=== PATIENT | male | born 2000 | race Two or more races ===

== ENCOUNTER 2020-06-04 10:47 | Inpatient (IN) | payer OTHER ==
[~2020-06-04] VITALS: Ht 165.1 cm; Wt 78.0 kg
--- NOTE | 2020-06-04 10:58 | NUR ---
FEVER FOR THE LAST WEEK, FRIDAY FEVER BEING 102,COUGH X1 WEEK, XR AT [facility]OWS LARGE LT PLEURAL EFFUSION. FATHER AT BEDSIDE. DR. LEYVA AT BEDSIDE. HAD COVID VACCINE 2 WEEKS AGO, PT STATES HE HAS SORE THROAT, AND PRESSURE IN CHEST, SHARP PAIN IN CHEST WITH COUGHING. PT ATTACHED TO MONITORS, VSS, NADN. WILL CONTINUE TO MONITOR.
[2020-06-04 11:28] LABS: BASOPHILS % (AUTO) 1 % (0-1); EOSINOPHILS % (AUTO) 2 % (1-7); LYMPHOCYTES % (AUTO) 13 % (22-44); MEAN CORPUSCULAR HGB CONC 35.1 g/dL (33.2-36.2); MEAN PLATELET VOLUME 6.6 fL (7.4-10.4); MONOCYTES % (AUTO) 11 % (2-9); NEUTROPHILS % (AUTO) 74 % (42-75); PLATELET COUNT 500 x10^3/uL (130-400); RED BLOOD COUNT 4.45 x10^6/uL (4.38-5.82); RED CELL DISTRIBUTION WIDTH 12.4 % (9.4-14.8)
[2020-06-04 11:29] LABS: MD NO
[2020-06-04 11:39] LABS: ALANINE AMINOTRANSFERASE 16 U/L (12-78); ALBUMIN 3.5 g/dL (3.4-5.0); ANION GAP 4 mmol/L (5-15); CALCIUM 9.6 mg/dL (8.5-10.1); CHLORIDE 103 mmol/L (98-107); CREATININE 0.95 mg/dL (0.7-1.3)
[2020-06-04 11:41] LABS: ALKALINE PHOSPHATASE 121 U/L (45-117); BILIRUBIN,TOTAL 0.3 mg/dL (0.2-1.0); TOTAL PROTEIN 8.8 g/dL (6.4-8.2)
--- NOTE | 2020-06-04 11:45 | NUR ---
PT TO CT
[2020-06-04] MEDS ORDERED: OMNIPAQUE 350 MG/ML, 75ML BOTTLE ONE (11:55)
--- NOTE | 2020-06-04 12:32 | NUR ---
pt up to bathroom with steady gait, vss, nadn
--- NOTE | 2020-06-04 12:55 | NUR ---
pt resting in bed with father at bedside, awaiting ct results, vss, nadn.
--- NOTE | 2020-06-04 13:04 | NUR ---
Break RN: Called CT to inquire about read of CT imaging, no answer. Message left.
--- NOTE | 2020-06-04 13:12 | NUR ---
Break RN: CT stated "Okay I'll take a look at it and get it pushed through."
--- NOTE | 2020-06-04 13:33 | NUR ---
AT BEDSIDE FOR EVALUATION
[2020-06-04] MEDS ORDERED: SODIUM CHLORIDE 0.9% 1,000ML IVBOLUS ONE (14:30)
[2020-06-04] MEDS ORDERED: ONDANSETRON ODT 4 MG PO PRN (15:00)
[2020-06-04] MEDS ORDERED: hydrALAzine 20 MG/ML, 1ML IVPush PRN (15:00)
--- NOTE | 2020-06-04 15:23 | NUR ---
X2 ATTEMPT AT REPORT
--- NOTE | 2020-06-04 15:34 | NUR ---
report called to kay
[2020-06-04 16:07] VITALS: BP 114/66
[2020-06-04] MEDS: ACETAMINOPHEN 325 MG TABLET PO PRN (16:12)
[2020-06-04] MEDS: BENZONATATE 100 MG CAPSULE PO PRN (16:12)
[2020-06-04] MEDS ORDERED: OMNIPAQUE 350 MG/ML, 100ML BOTTLE ONE (17:27)
[2020-06-04 18:39] VITALS: BP 114/68
[2020-06-04] MEDS: OXYcodone/APAP 5/325MG TABLET PO PRN (19:49)
[2020-06-04] MEDS: MELATONIN 5 MG TABLET PO PRN (19:49)
[2020-06-05 00:25] VITALS: BP 102/69
[2020-06-05] MEDS: OXYcodone/APAP 5/325MG TABLET PO PRN ×2 (01:59→08:01)
[2020-06-05] MEDS: BENZONATATE 100 MG CAPSULE PO PRN (02:05)
[2020-06-05] MEDS: GUAIFENESIN/DM 100-10MG, 5ML UDC PO PRN ×2 (02:05→19:52)
[2020-06-05] MEDS: ACETAMINOPHEN 325 MG TABLET PO PRN ×2 (02:05→19:52)
[2020-06-05 05:37] LABS: BASOPHILS % (AUTO) 1 % (0-1); EOSINOPHILS % (AUTO) 1 % (1-7); LYMPHOCYTES % (AUTO) 12 % (22-44); MEAN CORPUSCULAR HEMOGLOBIN 31.8 pg (27.5-34.5); MEAN CORPUSCULAR HGB CONC 35.2 g/dL (33.2-36.2); MEAN PLATELET VOLUME 6.6 fL (7.4-10.4); MONOCYTES % (AUTO) 11 % (2-9); NEUTROPHILS % (AUTO) 75 % (42-75); PLATELET COUNT 475 x10^3/uL (130-400); RED BLOOD COUNT 4.14 x10^6/uL (4.38-5.82); RED CELL DISTRIBUTION WIDTH 12.3 % (9.4-14.8)
[2020-06-05 05:38] LABS: MD NO
[2020-06-05 05:47] LABS: ANION GAP 3 mmol/L (5-15); CALCIUM 9.4 mg/dL (8.5-10.1); CHLORIDE 102 mmol/L (98-107); CREATININE 1.02 mg/dL (0.7-1.3)
[2020-06-05 06:50] VITALS: BP 118/80
[2020-06-05 13:05] VITALS: BP 125/78
[2020-06-05] MEDS ORDERED: IBUPROFEN 800 MG TABLET PO PRN (13:30)
[2020-06-05 19:04] VITALS: BP 145/73
[2020-06-05] MEDS: MELATONIN 5 MG TABLET PO PRN (21:44)
[2020-06-06 02:37] VITALS: BP 110/58
[2020-06-06] MEDS: GUAIFENESIN/DM 100-10MG, 5ML UDC PO PRN ×2 (03:24→20:13)
[2020-06-06 06:55] VITALS: BP 121/76
[2020-06-06] MEDS: OXYcodone/APAP 5/325MG TABLET PO PRN ×2 (08:57→20:04)
[2020-06-06] MEDS ORDERED: MIDAZOLAM 1 MG/ML, 5ML ONE (11:00)
[2020-06-06] MEDS ORDERED: FLUMAZENIL 0.1 MG/1 ML, 5ML ONE (11:00)
[2020-06-06] MEDS ORDERED: NALOXONE 1 MG/ML, 2ML ONE (11:00)
[2020-06-06] MEDS ORDERED: FENTANYL PF 100 MCG/2ML ONE (11:00)
[2020-06-06 12:29] VITALS: BP 99/65
[2020-06-06 19:19] VITALS: BP 105/53
[2020-06-06] MEDS: ACETAMINOPHEN 325 MG TABLET PO PRN (20:03)
[2020-06-06] MEDS: KETOROLAC 30 MG/1 ML IVPush PRN (21:30)
[2020-06-06 22:49] VITALS: BP 97/59
[2020-06-07 01:50] VITALS: BP 111/73
[2020-06-07] MEDS: OXYcodone/APAP 5/325MG TABLET PO PRN ×4 (05:07→23:31)
[2020-06-07] MEDS: GUAIFENESIN/DM 100-10MG, 5ML UDC PO PRN ×4 (06:00→21:19)
[2020-06-07 07:27] VITALS: BP 112/71
[2020-06-07 12:34] VITALS: BP 106/60
[2020-06-07 12:49] LABS: MICROSCOPIC NOT IND
[2020-06-07] MEDS: BENZONATATE 100 MG CAPSULE PO PRN (14:50)
[2020-06-07] MEDS: ACETAMINOPHEN 325 MG TABLET PO PRN (15:18)
[2020-06-07 19:26] VITALS: BP 117/65
[2020-06-07] MEDS: CALCIUM CARBONATE 500 MG TAB.CHEW PO PRN (23:24)
[2020-06-08 04:00] VITALS: BP 106/56
[2020-06-08] MEDS: ACETAMINOPHEN 325 MG TABLET PO PRN (04:35)
[2020-06-08] MEDS: OXYcodone/APAP 5/325MG TABLET PO PRN ×2 (06:21→18:18)
[2020-06-08 07:15] VITALS: BP 109/66
[2020-06-08] MEDS: GUAIFENESIN/DM 100-10MG, 5ML UDC PO PRN ×2 (09:01→18:17)
[2020-06-08] MEDS: BENZONATATE 100 MG CAPSULE PO PRN ×2 (09:01→18:18)
[2020-06-08] MEDS: KETOROLAC 30 MG/1 ML IVPush PRN ×2 (13:11→21:57)
[2020-06-08 13:27] VITALS: BP 119/63
[2020-06-08 17:15] VITALS: BP 118/65
[2020-06-08 18:21] VITALS: BP 125/79
[2020-06-08] MEDS: CALCIUM CARBONATE 500 MG TAB.CHEW PO PRN (18:27)
[2020-06-08] MEDS: ALUMINUM/MAG/SIMETHICONE 30 ML UDC PO PRN (19:20)
[2020-06-09] MEDS: GUAIFENESIN/DM 100-10MG, 5ML UDC PO PRN ×3 (00:12→21:26)
[2020-06-09 03:05] VITALS: BP 118/72
[2020-06-09] MEDS: CALCIUM CARBONATE 500 MG TAB.CHEW PO PRN (03:23)
[2020-06-09 07:18] VITALS: BP 106/67
[2020-06-09] MEDS: OMEPRAZOLE 20 MG CAPSULE.DR PO SCH (08:10)
[2020-06-09] MEDS: KETOROLAC 30 MG/1 ML IVPush PRN ×2 (08:13→16:49)
[2020-06-09] MEDS: OXYcodone/APAP 5/325MG TABLET PO PRN ×3 (08:14→20:05)
[2020-06-09] MEDS: BENZONATATE 100 MG CAPSULE PO PRN ×2 (11:06→16:49)
[2020-06-09] MEDS ORDERED: LIDOCAINE 1%, 10ML ONE (11:19)
[2020-06-09 12:35] VITALS: BP 118/73
[2020-06-09 19:25] VITALS: BP 108/71
[2020-06-10 03:45] VITALS: BP 111/53
[2020-06-10] MEDS: ACETAMINOPHEN 325 MG TABLET PO PRN ×2 (03:52→15:30)
[2020-06-10] MEDS: KETOROLAC 30 MG/1 ML IVPush PRN (05:55)
[2020-06-10] MEDS: OMEPRAZOLE 20 MG CAPSULE.DR PO SCH (05:59)
[2020-06-10 06:58] VITALS: BP 103/63
[2020-06-10] MEDS: OXYcodone/APAP 5/325MG TABLET PO PRN (08:04)
[2020-06-10] MEDS: BENZONATATE 100 MG CAPSULE PO PRN (08:04)
[2020-06-10] MEDS: GUAIFENESIN/DM 100-10MG, 5ML UDC PO PRN (10:04)
[2020-06-10 12:27] VITALS: BP 124/78
[2020-06-10] MEDS ORDERED: GUAIFENESIN 100 MG/5 ML, 10ML UDC PO PRN (15:08)
[2020-06-10] MEDS: GUAIFENESIN/DM 200-20MG, 10ML UDC PO PRN ×2 (17:24→21:47)
[2020-06-10 19:45] VITALS: BP 113/65
[2020-06-11 01:55] VITALS: BP 123/77
[2020-06-11] MEDS: OMEPRAZOLE 20 MG CAPSULE.DR PO SCH (05:36)
[2020-06-11] MEDS: OXYcodone/APAP 5/325MG TABLET PO PRN ×2 (07:51→13:59)
[2020-06-11] MEDS: GUAIFENESIN/DM 200-20MG, 10ML UDC PO PRN ×3 (07:55→20:37)
[2020-06-11 09:13] VITALS: BP 113/74
[2020-06-11 10:33] LABS: MICROSCOPIC NOT IND
[2020-06-11] MEDS: ACETAMINOPHEN 325 MG TABLET PO PRN ×2 (15:11→22:25)
[2020-06-11 15:12] VITALS: BP 102/68
[2020-06-11] MEDS: KETOROLAC 30 MG/1 ML IVPush PRN (15:41)
[2020-06-11 18:56] VITALS: BP 110/70
[2020-06-11] MEDS: MELATONIN 5 MG TABLET PO PRN (22:14)
[2020-06-12 00:56] VITALS: BP 104/67
[2020-06-12 05:41] LABS: BASOPHILS % (AUTO) 1 % (0-1); EOSINOPHILS % (AUTO) 3 % (1-7); LYMPHOCYTES % (AUTO) 12 % (22-44); MEAN CORPUSCULAR HEMOGLOBIN 31.1 pg (27.5-34.5); MEAN CORPUSCULAR HGB CONC 33.7 g/dL (33.2-36.2); MEAN PLATELET VOLUME 6.7 fL (7.4-10.4); MONOCYTES % (AUTO) 12 % (2-9); NEUTROPHILS % (AUTO) 73 % (42-75); PLATELET COUNT 510 x10^3/uL (130-400); RED BLOOD COUNT 3.22 x10^6/uL (4.38-5.82); RED CELL DISTRIBUTION WIDTH 12.8 % (9.4-14.8)
[2020-06-12 05:43] LABS: MD NO
[2020-06-12 05:49] LABS: ALBUMIN 2.2 g/dL (3.4-5.0); ANION GAP 5 mmol/L (5-15); CALCIUM 8.6 mg/dL (8.5-10.1); CHLORIDE 102 mmol/L (98-107)
[2020-06-12 05:53] LABS: ALANINE AMINOTRANSFERASE 38 U/L (12-78); ALKALINE PHOSPHATASE 124 U/L (45-117); BILIRUBIN,TOTAL 0.5 mg/dL (0.2-1.0); CREATININE 0.73 mg/dL (0.7-1.3); TOTAL PROTEIN 6.9 g/dL (6.4-8.2)
[2020-06-12] MEDS: OMEPRAZOLE 20 MG CAPSULE.DR PO SCH (05:53)
[2020-06-12] MEDS: GUAIFENESIN/DM 200-20MG, 10ML UDC PO PRN ×3 (05:55→14:22)
[2020-06-12] MEDS ORDERED: POLYETHYLENE GLYCOL 17 GM PACKET PO PRN (07:30)
[2020-06-12] MEDS ORDERED: LORazepam 2 MG/ML, 1ML IV PRN (08:30)
[2020-06-12 08:46] VITALS: BP 125/57
[2020-06-12] MEDS: SODIUM CHLORIDE 0.9% 1,000 ML IV SCH ×2 (08:53→19:49)
[2020-06-12 08:59] LABS: MICROSCOPIC NOT IND
[2020-06-12] MEDS: OLANZAPINE 5 MG TABLET PO SCH (10:16)
[2020-06-12] MEDS: ONDANSETRON 16 MG, DEXAMETHASONE 20 MG in SODIUM CHLORIDE 0.9% 50 ML IVPB SCH (12:55)
[2020-06-12] MEDS ORDERED: SODIUM CHLORIDE 0.9% IV ONE (13:30)
[2020-06-12] MEDS ORDERED: MESNA IV ONE (13:30)
[2020-06-12] MEDS: CISPLATIN 39 MG in SODIUM CHLORIDE 0.9% 250 ML IV SCH (13:49)
[2020-06-12 14:24] VITALS: BP 104/65
[2020-06-12] MEDS: OXYcodone/APAP 5/325MG TABLET PO PRN (16:13)
[2020-06-12] MEDS: ETOPOSIDE IV SCH (17:43)
[2020-06-12] MEDS: SODIUM CHLORIDE 0.9% IV SCH ×3 (17:43→18:30)
[2020-06-12] MEDS: IFOSFAMIDE IV SCH (17:45)
[2020-06-12] MEDS: MESNA IV SCH (18:30)
[2020-06-12 18:48] VITALS: BP 115/71
[2020-06-13 02:45] VITALS: BP 101/65
[2020-06-13] MEDS: GUAIFENESIN/DM 200-20MG, 10ML UDC PO PRN ×4 (03:49→20:30)
[2020-06-13] MEDS: SODIUM CHLORIDE 0.9% 1,000 ML IV SCH ×3 (03:49→19:21)
[2020-06-13 04:35] LABS: BASOPHILS % (AUTO) 0 % (0-1); EOSINOPHILS % (AUTO) 0 % (1-7); LYMPHOCYTES % (AUTO) 4 % (22-44); MEAN CORPUSCULAR HEMOGLOBIN 31.1 pg (27.5-34.5); MEAN CORPUSCULAR HGB CONC 33.3 g/dL (33.2-36.2); MEAN PLATELET VOLUME 6.9 fL (7.4-10.4); MONOCYTES % (AUTO) 5 % (2-9); NEUTROPHILS % (AUTO) 91 % (42-75); PLATELET COUNT 520 x10^3/uL (130-400); RED BLOOD COUNT 3.06 x10^6/uL (4.38-5.82); RED CELL DISTRIBUTION WIDTH 13.4 % (9.4-14.8)
[2020-06-13 04:43] LABS: MD NO
[2020-06-13 04:47] LABS: ALBUMIN 1.9 g/dL (3.4-5.0); ANION GAP 7 mmol/L (5-15); CALCIUM 8.3 mg/dL (8.5-10.1); CHLORIDE 111 mmol/L (98-107)
[2020-06-13 04:51] LABS: ALANINE AMINOTRANSFERASE 34 U/L (12-78); ALKALINE PHOSPHATASE 121 U/L (45-117); BILIRUBIN,TOTAL 0.3 mg/dL (0.2-1.0); CREATININE 0.73 mg/dL (0.7-1.3); TOTAL PROTEIN 6.5 g/dL (6.4-8.2)
[2020-06-13] MEDS: OMEPRAZOLE 20 MG CAPSULE.DR PO SCH (06:37)
[2020-06-13 07:10] VITALS: BP 132/76
[2020-06-13 07:45] LABS: MICROSCOPIC NOT IND
[2020-06-13] MEDS: OLANZAPINE 5 MG TABLET PO SCH (07:47)
[2020-06-13] MEDS: ONDANSETRON 16 MG, DEXAMETHASONE 20 MG in SODIUM CHLORIDE 0.9% 50 ML IVPB SCH (10:09)
[2020-06-13] MEDS: CISPLATIN 39 MG in SODIUM CHLORIDE 0.9% 250 ML IV SCH (11:06)
[2020-06-13] MEDS: SODIUM CHLORIDE 0.9% IV SCH ×3 (12:33→16:58)
[2020-06-13] MEDS: ETOPOSIDE IV SCH (12:33)
[2020-06-13 14:13] VITALS: BP 137/83
[2020-06-13] MEDS: IFOSFAMIDE IV SCH (15:12)
[2020-06-13] MEDS: MESNA IV SCH (16:58)
[2020-06-13 19:07] VITALS: BP 127/79
[2020-06-13] MEDS: BENZONATATE 100 MG CAPSULE PO PRN (21:28)
[2020-06-14] MEDS: SODIUM CHLORIDE 0.9% 1,000 ML IV SCH ×3 (03:29→19:44)
[2020-06-14] MEDS: GUAIFENESIN/DM 200-20MG, 10ML UDC PO PRN ×2 (05:12→19:44)
[2020-06-14] MEDS: OMEPRAZOLE 20 MG CAPSULE.DR PO SCH (05:24)
[2020-06-14 05:27] VITALS: BP 131/81
[2020-06-14 05:39] LABS: BASOPHILS % (AUTO) 1 % (0-1); EOSINOPHILS % (AUTO) 0 % (1-7); LYMPHOCYTES % (AUTO) 7 % (22-44); MEAN CORPUSCULAR HEMOGLOBIN 31.1 pg (27.5-34.5); MEAN CORPUSCULAR HGB CONC 33.5 g/dL (33.2-36.2); MEAN PLATELET VOLUME 6.7 fL (7.4-10.4); MONOCYTES % (AUTO) 4 % (2-9); NEUTROPHILS % (AUTO) 88 % (42-75); PLATELET COUNT 589 x10^3/uL (130-400); RED BLOOD COUNT 2.99 x10^6/uL (4.38-5.82); RED CELL DISTRIBUTION WIDTH 13.1 % (9.4-14.8)
[2020-06-14 05:40] LABS: MD NO
[2020-06-14 05:43] LABS: MICROSCOPIC NOT IND
[2020-06-14 05:50] LABS: ALANINE AMINOTRANSFERASE 40 U/L (12-78); ALBUMIN 1.9 g/dL (3.4-5.0); ANION GAP 5 mmol/L (5-15); CALCIUM 8.4 mg/dL (8.5-10.1); CHLORIDE 111 mmol/L (98-107)
[2020-06-14 05:52] LABS: ALKALINE PHOSPHATASE 110 U/L (45-117); BILIRUBIN,TOTAL 0.2 mg/dL (0.2-1.0); TOTAL PROTEIN 6.3 g/dL (6.4-8.2)
[2020-06-14 06:40] VITALS: BP 138/85
[2020-06-14] MEDS: OLANZAPINE 5 MG TABLET PO SCH (09:18)
[2020-06-14] MEDS: ONDANSETRON 16 MG, DEXAMETHASONE 20 MG in SODIUM CHLORIDE 0.9% 50 ML IVPB SCH (09:40)
[2020-06-14] MEDS ORDERED: FUROSEMIDE 20 MG/2 ML IV ONE (10:00)
[2020-06-14] MEDS: CISPLATIN 39 MG in SODIUM CHLORIDE 0.9% 250 ML IV SCH (10:46)
[2020-06-14] MEDS: ETOPOSIDE IV SCH (12:19)
[2020-06-14] MEDS: SODIUM CHLORIDE 0.9% IV SCH ×3 (12:19→15:33)
[2020-06-14] MEDS: OXYcodone/APAP 5/325MG TABLET PO PRN ×2 (12:22→19:55)
[2020-06-14] MEDS ORDERED: ALBUMIN HUMAN 25% 100 ML IV ONE (13:30)
[2020-06-14 14:00] VITALS: BP 128/82
[2020-06-14] MEDS: IFOSFAMIDE IV SCH (14:39)
[2020-06-14] MEDS: MESNA IV SCH (15:33)
[2020-06-14] MEDS: BENZONATATE 100 MG CAPSULE PO PRN (18:21)
[2020-06-14 19:52] VITALS: BP 124/79
[2020-06-15] MEDS: SODIUM CHLORIDE 0.9% 1,000 ML IV SCH ×3 (04:12→19:38)
[2020-06-15] MEDS: GUAIFENESIN/DM 200-20MG, 10ML UDC PO PRN (04:12)
[2020-06-15] MEDS: BENZONATATE 100 MG CAPSULE PO PRN ×2 (04:21→19:37)
[2020-06-15] MEDS: OXYcodone/APAP 5/325MG TABLET PO PRN ×2 (04:21→18:22)
[2020-06-15 04:24] VITALS: BP 144/86
[2020-06-15 05:05] LABS: MICROSCOPIC NOT IND
[2020-06-15 05:17] LABS: ANION GAP 5 mmol/L (5-15); CHLORIDE 106 mmol/L (98-107); CREATININE 0.75 mg/dL (0.7-1.3)
[2020-06-15 05:18] LABS: ALANINE AMINOTRANSFERASE 39 U/L (12-78); ALBUMIN 2.4 g/dL (3.4-5.0)
[2020-06-15 05:20] LABS: ALKALINE PHOSPHATASE 102 U/L (45-117); BASOPHILS % (AUTO) 1 % (0-1); BILIRUBIN,TOTAL 0.5 mg/dL (0.2-1.0); EOSINOPHILS % (AUTO) 0 % (1-7); LYMPHOCYTES % (AUTO) 10 % (22-44); MEAN CORPUSCULAR HEMOGLOBIN 31.7 pg (27.5-34.5); MEAN PLATELET VOLUME 7.1 fL (7.4-10.4); MONOCYTES % (AUTO) 2 % (2-9); NEUTROPHILS % (AUTO) 87 % (42-75); PLATELET COUNT 614 x10^3/uL (130-400); RED BLOOD COUNT 3.02 x10^6/uL (4.38-5.82); RED CELL DISTRIBUTION WIDTH 13.5 % (9.4-14.8); TOTAL PROTEIN 6.9 g/dL (6.4-8.2)
[2020-06-15 05:34] LABS: MD NO
[2020-06-15] MEDS: OMEPRAZOLE 20 MG CAPSULE.DR PO SCH (06:02)
[2020-06-15 07:39] VITALS: BP 137/77
[2020-06-15] MEDS ORDERED: METHOCARBAMOL 750 MG TABLET PO PRN (09:00)
[2020-06-15] MEDS: PROCHLORPERAZINE 5 MG/ML, 2ML IV PRN (09:20)
[2020-06-15] MEDS: OLANZAPINE 5 MG TABLET PO SCH (09:20)
[2020-06-15] MEDS: FAMOTIDINE 20 MG TABLET PO SCH ×2 (09:21→19:37)
[2020-06-15] MEDS: ONDANSETRON 16 MG, DEXAMETHASONE 20 MG in SODIUM CHLORIDE 0.9% 50 ML IVPB SCH (09:54)
[2020-06-15] MEDS: CISPLATIN 39 MG in SODIUM CHLORIDE 0.9% 250 ML IV SCH (12:16)
[2020-06-15] MEDS: SODIUM CHLORIDE 0.9% IV SCH ×3 (13:39→16:38)
[2020-06-15] MEDS: ETOPOSIDE IV SCH (13:39)
[2020-06-15 15:00] VITALS: BP 117/75
[2020-06-15] MEDS: IFOSFAMIDE IV SCH (15:59)
[2020-06-15] MEDS: MESNA IV SCH (16:38)
[2020-06-15 19:04] VITALS: BP 126/73
[2020-06-15] MEDS: CALCIUM CARBONATE 500 MG TAB.CHEW PO PRN (21:09)
[2020-06-15] MEDS: ALUMINUM/MAG/SIMETHICONE 30 ML UDC PO PRN (21:45)
[2020-06-16] MEDS: SODIUM CHLORIDE 0.9% 1,000 ML IV SCH (02:59)
[2020-06-16 03:01] VITALS: BP 124/72
[2020-06-16 04:38] LABS: MICROSCOPIC NOT IND
[2020-06-16] MEDS: OMEPRAZOLE 20 MG CAPSULE.DR PO SCH (05:00)
[2020-06-16] MEDS ORDERED: CATHFLO-ALTEPLASE 2 MG/2 ML CATHFLUSH STA (05:08)
[2020-06-16 05:22] LABS: BASOPHILS % (AUTO) 1 % (0-1); EOSINOPHILS % (AUTO) 1 % (1-7); LYMPHOCYTES % (AUTO) 13 % (22-44); MEAN CORPUSCULAR HEMOGLOBIN 31.4 pg (27.5-34.5); MEAN CORPUSCULAR HGB CONC 34.1 g/dL (33.2-36.2); MEAN PLATELET VOLUME 6.9 fL (7.4-10.4); MONOCYTES % (AUTO) 1 % (2-9); NEUTROPHILS % (AUTO) 85 % (42-75); PLATELET COUNT 602 x10^3/uL (130-400); RED BLOOD COUNT 3.13 x10^6/uL (4.38-5.82); RED CELL DISTRIBUTION WIDTH 13.4 % (9.4-14.8)
[2020-06-16 05:28] LABS: ANION GAP 4 mmol/L (5-15); CALCIUM 9.4 mg/dL (8.5-10.1); CHLORIDE 104 mmol/L (98-107)
[2020-06-16 05:31] LABS: CREATININE 0.86 mg/dL (0.7-1.3)
[2020-06-16 05:54] LABS: MD NO
[2020-06-16 07:05] VITALS: BP 114/72
[2020-06-16] MEDS: OLANZAPINE 5 MG TABLET PO SCH (07:27)
[2020-06-16] MEDS: OXYcodone/APAP 5/325MG TABLET PO PRN ×3 (07:28→21:31)
[2020-06-16] MEDS: GUAIFENESIN/DM 200-20MG, 10ML UDC PO PRN ×2 (07:28→20:53)
[2020-06-16] MEDS: FAMOTIDINE 20 MG TABLET PO SCH ×2 (07:28→21:30)
[2020-06-16] MEDS: ONDANSETRON 16 MG, DEXAMETHASONE 20 MG in SODIUM CHLORIDE 0.9% 50 ML IVPB SCH (10:30)
[2020-06-16] MEDS ORDERED: SODIUM CHLORIDE 0.9% 1,000 ML IV SCH (11:00)
[2020-06-16] MEDS: CISPLATIN 39 MG in SODIUM CHLORIDE 0.9% 250 ML IV SCH (12:21)
[2020-06-16] MEDS: SODIUM CHLORIDE 0.9% IV SCH ×3 (13:46→18:33)
[2020-06-16] MEDS: ETOPOSIDE IV SCH (13:46)
[2020-06-16 14:02] VITALS: BP 142/75
[2020-06-16] MEDS: IFOSFAMIDE IV SCH (16:00)
[2020-06-16] MEDS: MESNA IV SCH (18:33)
[2020-06-16 18:40] VITALS: BP 129/78
[2020-06-16] MEDS: CALCIUM CARBONATE 500 MG TAB.CHEW PO PRN (20:53)
[2020-06-16] MEDS: ALUMINUM/MAG/SIMETHICONE 30 ML UDC PO PRN (22:51)
[2020-06-17 00:55] VITALS: BP 109/62
[2020-06-17] MEDS: ONDANSETRON 2MG/ML, 2ML IVPush PRN ×2 (05:18→13:51)
[2020-06-17] MEDS: OXYcodone/APAP 5/325MG TABLET PO PRN (05:40)
[2020-06-17] MEDS: GUAIFENESIN/DM 200-20MG, 10ML UDC PO PRN ×2 (05:40→15:11)
[2020-06-17] MEDS: OMEPRAZOLE 20 MG CAPSULE.DR PO SCH (05:40)
[2020-06-17 05:56] LABS: BASOPHILS % (AUTO) 1 % (0-1); EOSINOPHILS % (AUTO) 1 % (1-7); LYMPHOCYTES % (AUTO) 13 % (22-44); MEAN CORPUSCULAR HGB CONC 33.5 g/dL (33.2-36.2); MEAN PLATELET VOLUME 6.7 fL (7.4-10.4); MONOCYTES % (AUTO) 1 % (2-9); NEUTROPHILS % (AUTO) 84 % (42-75); PLATELET COUNT 672 x10^3/uL (130-400); RED CELL DISTRIBUTION WIDTH 13.3 % (9.4-14.8)
[2020-06-17 06:02] LABS: ANION GAP 5 mmol/L (5-15); CALCIUM 10.5 mg/dL (8.5-10.1); CHLORIDE 98 mmol/L (98-107); CREATININE 0.93 mg/dL (0.7-1.3)
[2020-06-17 06:06] LABS: MD NO
[2020-06-17 07:45] VITALS: BP 119/71
[2020-06-17] MEDS: BENZONATATE 100 MG CAPSULE PO SCH ×3 (09:38→21:00)
[2020-06-17 12:51] VITALS: BP 112/64
[2020-06-17] MEDS: LORazepam 1MG TABLET PO PRN (15:11)
[2020-06-17] MEDS: CALCIUM CARBONATE 500 MG TAB.CHEW PO PRN (15:11)
[2020-06-17 18:10] VITALS: BP 106/68
[2020-06-17 19:12] VITALS: BP 106/75
[2020-06-17] MEDS: ALUMINUM/MAG/SIMETHICONE 30 ML UDC PO PRN (21:45)
[2020-06-18 00:06] VITALS: BP 106/65
[2020-06-18] MEDS: MELATONIN 5 MG TABLET PO PRN (01:53)
[2020-06-18] MEDS: LORazepam 1MG TABLET PO PRN ×2 (04:44→19:48)
[2020-06-18] MEDS: OMEPRAZOLE 20 MG CAPSULE.DR PO SCH ×2 (05:07→11:20)
[2020-06-18 05:26] LABS: BASOPHILS % (AUTO) 0 % (0-1); EOSINOPHILS % (AUTO) 2 % (1-7); LYMPHOCYTES % (AUTO) 13 % (22-44); MEAN CORPUSCULAR HEMOGLOBIN 31.1 pg (27.5-34.5); MEAN CORPUSCULAR HGB CONC 34.6 g/dL (33.2-36.2); MEAN PLATELET VOLUME 6.4 fL (7.4-10.4); MONOCYTES % (AUTO) 1 % (2-9); NEUTROPHILS % (AUTO) 83 % (42-75); PLATELET COUNT 589 x10^3/uL (130-400); RED BLOOD COUNT 3.83 x10^6/uL (4.38-5.82); RED CELL DISTRIBUTION WIDTH 13.4 % (9.4-14.8)
[2020-06-18 05:27] LABS: ANION GAP 9 mmol/L (5-15); CALCIUM 10.1 mg/dL (8.5-10.1); CHLORIDE 89 mmol/L (98-107); CREATININE 1.09 mg/dL (0.7-1.3)
[2020-06-18 05:30] LABS: MD NO
[2020-06-18] MEDS: SODIUM CHLORIDE 0.9% 1,000 ML IV SCH ×2 (06:38→17:35)
[2020-06-18] MEDS: BENZONATATE 100 MG CAPSULE PO SCH ×3 (07:57→20:58)
[2020-06-18] MEDS: FAMOTIDINE 20 MG/2 ML IVPush SCH ×2 (07:57→20:59)
[2020-06-18] MEDS: LACTOBACILLUS CHEW TABLET PO SCH ×3 (07:57→20:59)
[2020-06-18 08:01] VITALS: BP 115/76
[2020-06-18 08:14] VITALS: BP 101/70
[2020-06-18 08:15] VITALS: BP 95/60
[2020-06-18] MEDS ORDERED: SODIUM CHLORIDE 0.9%, 500ML IVBOLUS ONE (08:30)
[2020-06-18] MEDS ORDERED: SODIUM PHOSPHATE 20 MMOL in SODIUM CHLORIDE 0.9% 500 ML IV ONE (10:30)
[2020-06-18] MEDS: TBO-FILGRASTIM 480 MCG/0.8 ML SQ SCH (11:20)
[2020-06-18] MEDS: OLANZAPINE 2.5 MG TABLET PO SCH (11:20)
[2020-06-18 13:50] VITALS: BP 104/70
[2020-06-18 19:27] VITALS: BP 99/55
[2020-06-19 01:14] VITALS: BP 109/73
[2020-06-19] MEDS: ACETAMINOPHEN 325 MG TABLET PO PRN ×2 (01:30→19:37)
[2020-06-19] MEDS: SODIUM CHLORIDE 0.9% 1,000 ML IV SCH (03:42)
[2020-06-19 04:28] LABS: % IRON SATURATION 77 % (20-55); ANION GAP 5 mmol/L (5-15); CALCIUM 9.3 mg/dL (8.5-10.1); CHLORIDE 96 mmol/L (98-107); CREATININE 1.01 mg/dL (0.7-1.3); IRON LEVEL 154 mcg/dL (65-175); TOTAL IRON BINDING CAPACITY 201 mcg/dL (250-450)
[2020-06-19] MEDS: OMEPRAZOLE 20 MG CAPSULE.DR PO SCH (05:45)
[2020-06-19] MEDS ORDERED: GADOTERATE 7.5 MMOL/15ML SYR ONE (07:29)
[2020-06-19 07:49] VITALS: BP 112/75
[2020-06-19] MEDS ORDERED: POTASSIUM CHLORIDE 20 MEQ TAB.ER.PRT PO SCH (08:00)
[2020-06-19] MEDS ORDERED: POTASSIUM CHLORIDE 20 MEQ TAB.ER.PRT PO ONE (08:30)
[2020-06-19] MEDS: OLANZAPINE 2.5 MG TABLET PO SCH (09:18)
[2020-06-19] MEDS: BENZONATATE 100 MG CAPSULE PO SCH ×3 (09:18→20:25)
[2020-06-19] MEDS: FAMOTIDINE 20 MG/2 ML IVPush SCH ×2 (09:18→20:25)
[2020-06-19] MEDS: LACTOBACILLUS CHEW TABLET PO SCH ×3 (09:18→20:25)
[2020-06-19] MEDS: PROCHLORPERAZINE 5 MG/ML, 2ML IV PRN (09:22)
[2020-06-19 10:08] LABS: MEAN CORPUSCULAR HEMOGLOBIN 30.4 pg (27.5-34.5); MEAN CORPUSCULAR HGB CONC 34.1 g/dL (33.2-36.2); MEAN PLATELET VOLUME 6.5 fL (7.4-10.4); PLATELET COUNT 388 x10^3/uL (130-400); RED BLOOD COUNT 3.62 x10^6/uL (4.38-5.82); RED CELL DISTRIBUTION WIDTH 13.1 % (9.4-14.8)
[2020-06-19 10:43] LABS: MD YES
[2020-06-19 10:45] LABS: EOS#(MANUAL) 1.05 x10^3/uL (0.0-0.4); EOS% (MANUAL) 5 % (1-7); LYMPH#(MANUAL) 0.63 x10^3/uL (1-3.4); LYMPHS% (MANUAL) 3 % (22-44); SEG#(MANUAL) 19.32 x10^3/uL (1.8-6.8); SEGS% (MANUAL) 92 % (42-75)
[2020-06-19 10:46] LABS: <PLATELET ESTIMATE> ADEQUATE; <PLT MORPHOLOGY> NORMAL PLT MORPH; <RBC MORPHOLOGY> NORMAL
[2020-06-19] MEDS: TBO-FILGRASTIM 480 MCG/0.8 ML SQ SCH (10:55)
[2020-06-19 12:49] VITALS: BP 106/72
[2020-06-19] MEDS: DEXAMETHASONE 4 MG TABLET PO SCH ×2 (16:24→20:25)
[2020-06-19] MEDS: ARTIFICIAL TEARS 15 DROP/ML BOTTLE EACHEYE PRN (16:25)
[2020-06-19] MEDS: CALCIUM CARBONATE 500 MG TAB.CHEW PO PRN (16:35)
[2020-06-19 18:50] VITALS: BP 104/67
[2020-06-19] MEDS: ONDANSETRON 2MG/ML, 2ML IVPush PRN (19:37)
[2020-06-19] MEDS: GUAIFENESIN/DM 200-20MG, 10ML UDC PO PRN (20:25)
[2020-06-20 01:19] VITALS: BP 108/71
[2020-06-20] MEDS: GUAIFENESIN/DM 200-20MG, 10ML UDC PO PRN (05:01)
[2020-06-20 05:31] LABS: ANION GAP 5 mmol/L (5-15); CALCIUM 9.3 mg/dL (8.5-10.1); CHLORIDE 99 mmol/L (98-107)
[2020-06-20 05:34] LABS: CREATININE 0.86 mg/dL (0.7-1.3)
[2020-06-20 06:20] LABS: MEAN CORPUSCULAR HEMOGLOBIN 30.2 pg (27.5-34.5); MEAN CORPUSCULAR HGB CONC 33.7 g/dL (33.2-36.2); MEAN PLATELET VOLUME 7.1 fL (7.4-10.4); PLATELET COUNT 305 x10^3/uL (130-400); RED BLOOD COUNT 3.42 x10^6/uL (4.38-5.82)
[2020-06-20 07:05] LABS: MD YES
[2020-06-20 07:06] LABS: BANDS%(MANUAL) 10 % (0-7); LYMPH#(MANUAL) 0.54 x10^3/uL (1-3.4); LYMPHS% (MANUAL) 3 % (22-44); MONOS#(MANUAL) 0.18 x10^3/uL (0.3-2.7); MONOS% (MANUAL) 1 % (2-9); SEG#(MANUAL) 15.48 x10^3/uL (1.8-6.8); SEGS% (MANUAL) 86 % (42-75)
[2020-06-20 07:07] LABS: <PLATELET ESTIMATE> ADEQUATE; <PLT MORPHOLOGY> NORMAL PLT MORPH; <RBC MORPHOLOGY> NORMAL
[2020-06-20] MEDS: FAMOTIDINE 20 MG/2 ML IVPush SCH (07:51)
[2020-06-20] MEDS: BENZONATATE 100 MG CAPSULE PO SCH (07:51)
[2020-06-20] MEDS: OLANZAPINE 2.5 MG TABLET PO SCH (07:52)
[2020-06-20] MEDS: LACTOBACILLUS CHEW TABLET PO SCH (07:52)
[2020-06-20] MEDS: DEXAMETHASONE 4 MG TABLET PO SCH (07:52)
[2020-06-20] MEDS ORDERED: POTASSIUM CHLORIDE 20 MEQ TAB.ER.PRT PO SCH (08:00)
[2020-06-20] MEDS ORDERED: SODIUM CHLORIDE 0.9% 1,000 ML IV SCH ×2 (08:17)
[2020-06-20] MEDS ORDERED: GADOTERATE 7.5 MMOL/15ML SYR ONE (09:02)
[2020-06-20] MEDS: ACETAMINOPHEN 325 MG TABLET PO PRN (10:02)
[2020-06-20] MEDS: ARTIFICIAL TEARS 15 DROP/ML BOTTLE EACHEYE PRN (10:03)
[2020-06-20] MEDS ORDERED: DEXA4TAB66 PO (12:32)
[2020-06-20] MEDS ORDERED: BENZ-17 PO (12:32)
[2020-06-20] MEDS ORDERED: ACID1TAB7 PO (12:32)
[2020-06-20] MEDS ORDERED: POTA20TA6 PO (12:32)
[2020-06-20] MEDS ORDERED: FAMO-79 PO (12:32)
[2020-06-20] MEDS ORDERED: OLAN2.5T10 PO (12:32)
[2020-06-20 14:15] VITALS: BP 134/80
== END 2020-06-20 15:30 | disposition home health service (06) | DRG 167 ==
LOC: ED 13:27 → EDIP 14:31 → SUATTDRO 14:49 → 4NW 15:45 → DCLOUNGE 06-20 15:10
PROVIDERS: ADMIT Hospitalist; ATTEND Internal Medicine
PROC: 0WBC3ZX Excision of Mediastinum, Percutaneous Approach, Diagnostic (ICD-10-PCS; 2020-06-06)
PROC: 02HV33Z Insertion of Infusion Device into Superior Vena Cava, Percutaneous Approach (ICD-10-PCS; 2020-06-07)
PROC: B5181ZA Fluoroscopy of Superior Vena Cava using Low Osmolar Contrast, Guidance (ICD-10-PCS; 2020-06-07)
PROC: B548ZZA Ultrasonography of Superior Vena Cava, Guidance (ICD-10-PCS; 2020-06-07)
PROC: 0W9B30Z Drainage of Left Pleural Cavity with Drainage Device, Percutaneous Approach (ICD-10-PCS; principal; 2020-06-09)
DX: C78.00 Secondary malignant neoplasm of unspecified lung (principal); C79.31 Secondary malignant neoplasm of brain; E87.1 Hypo-osmolality and hyponatremia; J91.0 Malignant pleural effusion; C62.90 Malignant neoplasm of unspecified testis, unspecified whether descended or undescended; E66.9 Obesity, unspecified; D64.9 Anemia, unspecified; E83.52 Hypercalcemia; E87.6 Hypokalemia; Z20.822 Contact with and (suspected) exposure to COVID-19; K21.9 Gastro-esophageal reflux disease without esophagitis; K59.00 Constipation, unspecified; Z68.28 Body mass index [BMI] 28.0-28.9, adult; Z79.899 Other long term (current) drug therapy
CPT/HCPCS: 32555; 36415; 76870; 84145; 87806; 89051; 99285; C8929; J3490; 32408; 36573; 70553; 71045; 71260; 72156; 72157; 72158; 74177; 77012; 80048; 80053; 81003; 82105; 83540; 83550; 83605; 83615; 83735; 84100; 84157; 84550; 84702; 85025; 86705; 86706; 86803; 87040; 87340; 88112; 88184; 88185; 88305; 88341; 88342; 93005; 99156; G0378; J1100; J1885; J2250; J2405; J2997; J3010; J9060; J9181; J9209; P9047; Q9957; Q9967; A9575; C1751; G0475; J0780; J1447; J1940; J2310; J7030; J7040; J7050; J9208

== ENCOUNTER 2020-06-30 07:12 | Outpatient (CLI) | payer OTHER, MEDICAID ==
[~2020-06-30 07:12] MED LIST changes: -OMNIPAQUE 350 MG/ML, 100ML BOTTLE ONE
== END 2020-06-30 23:59 | disposition home or self-care (01) ==
LOC: ROC 07:12
PROVIDERS: ATTEND Radiology Radiation Oncology
DX: C80.1 Malignant (primary) neoplasm, unspecified (principal); K21.9 Gastro-esophageal reflux disease without esophagitis; E83.52 Hypercalcemia; E87.1 Hypo-osmolality and hyponatremia; E87.6 Hypokalemia; E66.9 Obesity, unspecified; Z68.28 Body mass index [BMI] 28.0-28.9, adult; Z79.899 Other long term (current) drug therapy
CPT/HCPCS: 99214; G0463

== ENCOUNTER → 2020-06-30 | Outpatient (CLI) | payer OTHER, MEDICAID ==
[~2020-06-30] MED LIST: ACID1TAB7 PO; BENZ-17 PO; DEXA4TAB66 PO; FAMO-79 PO; OLAN2.5T10 PO; OMNIPAQUE 350 MG/ML, 100ML BOTTLE ONE; POTA20TA6 PO
== END | disposition home or self-care (01) ==
LOC: CFH 09:07
PROVIDERS: ATTEND Radiology Radiation Oncology
DX: J98.11 Atelectasis (principal); I26.99 Other pulmonary embolism without acute cor pulmonale; R91.8 Other nonspecific abnormal finding of lung field
CPT/HCPCS: 71275; Q9967

== ENCOUNTER 2020-07-05 09:09 | Inpatient (IN) | payer OTHER, MEDICAID ==
[~2020-07-05] VITALS: Ht 165.1 cm; Wt 77.6 kg
[2020-07-05] MEDS ORDERED: POTASSIUM CHLORIDE 20 MEQ TAB.ER.PRT PO ONE (09:30)
[2020-07-05] MEDS ORDERED: BENZONATATE 100 MG CAPSULE PO PRN (09:30)
[2020-07-05] MEDS ORDERED: SIMETHICONE 125 MG CHEW TAB PO PRN (10:00)
[2020-07-05 10:15] VITALS: BP 125/79
[2020-07-05 10:27] LABS: MICROSCOPIC NOT IND
[2020-07-05] MEDS ORDERED: PLEASE ENTER HEIGHT AND WEIGHT MC SCH (10:30)
[2020-07-05 10:46] LABS: MEAN CORPUSCULAR HEMOGLOBIN 31.7 pg (27.5-34.5); MEAN CORPUSCULAR HGB CONC 33.6 g/dL (33.2-36.2); PLATELET COUNT 571 x10^3/uL (130-400); RED BLOOD COUNT 3.93 x10^6/uL (4.38-5.82); RED CELL DISTRIBUTION WIDTH 16.4 % (9.4-14.8)
[2020-07-05 10:55] LABS: ALBUMIN 2.7 g/dL (3.4-5.0); ANION GAP 8 mmol/L (5-15); CALCIUM 8.2 mg/dL (8.5-10.1); CHLORIDE 106 mmol/L (98-107)
[2020-07-05 10:58] LABS: ALANINE AMINOTRANSFERASE 34 U/L (12-78); ALKALINE PHOSPHATASE 102 U/L (45-117); BILIRUBIN,TOTAL 0.1 mg/dL (0.2-1.0); CREATININE 0.69 mg/dL (0.7-1.3); MD YES
[2020-07-05] MEDS: APIXABAN 5 MG TABLET PO SCH ×2 (10:58→21:39)
[2020-07-05] MEDS: SIMETHICONE 125 MG CHEW TAB PO PRN (10:58)
[2020-07-05] MEDS: DEXAMETHASONE 4 MG TABLET PO SCH (10:59)
[2020-07-05 11:15] LABS: BAND#(MANUAL) 0.48 x10^3/uL; BANDS%(MANUAL) 2 % (0-7); METAMYELOCYTES% (MANUAL) 5 % (0-1); MONOS#(MANUAL) 2.87 x10^3/uL (0.3-2.7); MONOS% (MANUAL) 12 % (2-9); MYELOCYTES# (MANUAL) 0.24 x10^3/uL (0-0); MYELOCYTES% (MANUAL) 1 % (0-0)
[2020-07-05 11:16] LABS: <PLATELET ESTIMATE> INCREASED; <PLT MORPHOLOGY> NORMAL PLT MORPH; <RBC MORPHOLOGY> NORMAL; LYMPH#(MANUAL) 2.63 x10^3/uL (1-3.4); LYMPHS% (MANUAL) 11 % (22-44); SEG#(MANUAL) 16.49 x10^3/uL (1.8-6.8); SEGS% (MANUAL) 69 % (42-75)
[2020-07-05] MEDS ORDERED: OLANZAPINE 2.5 MG TABLET PO SCH (12:00)
[2020-07-05] MEDS: SODIUM CHLORIDE 0.9% 1,000 ML IV SCH ×2 (14:26→22:25)
[2020-07-05] MEDS ORDERED: PROCHLORPERAZINE 5 MG/ML, 2ML IM PRN (14:30)
[2020-07-05] MEDS ORDERED: LORazepam 2 MG/ML, 1ML IV PRN (14:30)
[2020-07-05 15:00] VITALS: BP 112/67
[2020-07-05] MEDS ORDERED: FOSAPREPITANT 150 MG in SODIUM CHLORIDE 0.9% 145 ML IV ONE (15:00)
[2020-07-05] MEDS ORDERED: OLANZAPINE 5 MG TABLET PO SCH (15:00)
[2020-07-05] MEDS: ONDANSETRON 16 MG, DEXAMETHASONE 10 MG in SODIUM CHLORIDE 0.9% 50 ML IVPB SCH (15:01)
[2020-07-05] MEDS ORDERED: ENOXAPARIN 40 MG/0.4 ML SQ SCH (16:00)
[2020-07-05] MEDS: CISPLATIN IV SCH (16:20)
[2020-07-05] MEDS: SODIUM CHLORIDE 0.9% IV SCH ×3 (16:20→20:34)
[2020-07-05] MEDS: ETOPOSIDE 140 MG in SODIUM CHLORIDE 0.9% 500 ML IV SCH (17:47)
[2020-07-05] MEDS ORDERED: MESNA IV ONE (19:00)
[2020-07-05] MEDS ORDERED: SODIUM CHLORIDE 0.9% IV ONE (19:00)
[2020-07-05 19:43] VITALS: BP 120/70
[2020-07-05] MEDS ORDERED: SODIUM CHLORIDE 0.9% IV SCH (20:00)
[2020-07-05] MEDS ORDERED: MESNA IV SCH (20:00)
[2020-07-05] MEDS: MESNA IV SCH (20:29)
[2020-07-05] MEDS: IFOSFAMIDE IV SCH (20:34)
[2020-07-05] MEDS ORDERED: DEXAMETHASONE 1 MG TABLET PO SCH (21:00)
[2020-07-06 03:24] VITALS: BP 115/71
[2020-07-06] MEDS ORDERED: ACETAMINOPHEN 325 MG TABLET PO PRN (03:30)
[2020-07-06] MEDS ORDERED: OXYcodone/APAP 5/325MG TABLET PO PRN (03:30)
[2020-07-06] MEDS: OXYcodone/APAP 5/325MG TABLET PO PRN (05:44)
[2020-07-06] MEDS: OMEPRAZOLE 20 MG CAPSULE.DR PO SCH (05:44)
[2020-07-06 06:13] LABS: MEAN CORPUSCULAR HEMOGLOBIN 31.6 pg (27.5-34.5); MEAN CORPUSCULAR HGB CONC 33.5 g/dL (33.2-36.2); PLATELET COUNT 502 x10^3/uL (130-400); RED BLOOD COUNT 3.77 x10^6/uL (4.38-5.82)
[2020-07-06] MEDS: SODIUM CHLORIDE 0.9% 1,000 ML IV SCH ×3 (06:15→21:46)
[2020-07-06 06:23] LABS: ALBUMIN 2.7 g/dL (3.4-5.0); ANION GAP 3 mmol/L (5-15); CALCIUM 8.5 mg/dL (8.5-10.1); CHLORIDE 106 mmol/L (98-107)
[2020-07-06 06:27] LABS: ALANINE AMINOTRANSFERASE 38 U/L (12-78); ALKALINE PHOSPHATASE 91 U/L (45-117); BILIRUBIN,TOTAL 0.2 mg/dL (0.2-1.0); CREATININE 0.63 mg/dL (0.7-1.3)
[2020-07-06 06:31] VITALS: BP 134/79
[2020-07-06 06:42] LABS: MD YES
[2020-07-06 06:44] LABS: <PLATELET ESTIMATE> INCREASED; <PLT MORPHOLOGY> NORMAL PLT MORPH; <RBC MORPHOLOGY> NORMAL; BAND#(MANUAL) 0.73 x10^3/uL; BANDS%(MANUAL) 3 % (0-7); LYMPH#(MANUAL) 1.22 x10^3/uL (1-3.4); LYMPHS% (MANUAL) 5 % (22-44); METAMYELOCYTES% (MANUAL) 9 % (0-1); MONOS#(MANUAL) 0.98 x10^3/uL (0.3-2.7); MONOS% (MANUAL) 4 % (2-9); MYELOCYTES# (MANUAL) 0.24 x10^3/uL (0-0); MYELOCYTES% (MANUAL) 1 % (0-0); SEG#(MANUAL) 19.03 x10^3/uL (1.8-6.8); SEGS% (MANUAL) 78 % (42-75)
[2020-07-06 07:22] LABS: MICROSCOPIC NOT IND
[2020-07-06] MEDS: DEXAMETHASONE 4 MG TABLET PO SCH (07:50)
[2020-07-06] MEDS: APIXABAN 5 MG TABLET PO SCH ×2 (07:50→21:40)
[2020-07-06] MEDS ORDERED: POLYETHYLENE GLYCOL 17 GM PACKET NG PRN (08:30)
[2020-07-06] MEDS ORDERED: OLANZAPINE 5 MG TABLET PO SCH (09:00)
[2020-07-06] MEDS: OLANZAPINE 5 MG TABLET PO SCH (11:46)
[2020-07-06] MEDS: ONDANSETRON 16 MG, DEXAMETHASONE 10 MG in SODIUM CHLORIDE 0.9% 50 ML IVPB SCH (12:54)
[2020-07-06] MEDS: SODIUM CHLORIDE 0.9% IV SCH ×3 (14:01→21:31)
[2020-07-06] MEDS: CISPLATIN IV SCH (14:01)
[2020-07-06 14:25] VITALS: BP 119/72
[2020-07-06] MEDS: ETOPOSIDE 140 MG in SODIUM CHLORIDE 0.9% 500 ML IV SCH (16:02)
[2020-07-06] MEDS: IFOSFAMIDE IV SCH (18:23)
[2020-07-06 18:26] VITALS: BP 110/56
[2020-07-06] MEDS: MESNA IV SCH (21:31)
[2020-07-07] MEDS: OXYcodone/APAP 5/325MG TABLET PO PRN (01:49)
[2020-07-07 04:00] VITALS: BP 108/58
[2020-07-07] MEDS: OMEPRAZOLE 20 MG CAPSULE.DR PO SCH (06:07)
[2020-07-07] MEDS: SODIUM CHLORIDE 0.9% 1,000 ML IV SCH ×3 (06:07→23:46)
[2020-07-07 07:03] LABS: MICROSCOPIC NOT IND
[2020-07-07 07:45] VITALS: BP 132/75
[2020-07-07] MEDS: APIXABAN 5 MG TABLET PO SCH ×2 (09:49→21:10)
[2020-07-07] MEDS: SIMETHICONE 125 MG CHEW TAB PO PRN (09:51)
[2020-07-07 11:19] LABS: MEAN CORPUSCULAR HEMOGLOBIN 32.1 pg (27.5-34.5); MEAN CORPUSCULAR HGB CONC 33.6 g/dL (33.2-36.2); MEAN PLATELET VOLUME 6.2 fL (7.4-10.4); PLATELET COUNT 436 x10^3/uL (130-400); RED BLOOD COUNT 3.68 x10^6/uL (4.38-5.82); RED CELL DISTRIBUTION WIDTH 17.8 % (9.4-14.8)
[2020-07-07 11:29] LABS: ALBUMIN 2.5 g/dL (3.4-5.0); CALCIUM 8.3 mg/dL (8.5-10.1)
[2020-07-07 11:34] LABS: ALANINE AMINOTRANSFERASE 36 U/L (12-78); ALKALINE PHOSPHATASE 79 U/L (45-117); BILIRUBIN,TOTAL 0.2 mg/dL (0.2-1.0); CREATININE 0.57 mg/dL (0.7-1.3); TOTAL PROTEIN 5.5 g/dL (6.4-8.2)
[2020-07-07] MEDS ORDERED: GADOTERATE 10 MMOL/20ML SYR ONE (11:51)
[2020-07-07 11:58] LABS: ANION GAP 5 mmol/L (5-15); CHLORIDE 107 mmol/L (98-107)
[2020-07-07] MEDS: OLANZAPINE 5 MG TABLET PO SCH (12:39)
[2020-07-07 13:34] VITALS: BP 125/77
[2020-07-07 13:51] LABS: MD YES
[2020-07-07 13:53] LABS: BAND#(MANUAL) 0.39 x10^3/uL; BANDS%(MANUAL) 2 % (0-7); LYMPH#(MANUAL) 0.59 x10^3/uL (1-3.4); LYMPHS% (MANUAL) 3 % (22-44); MYELOCYTES% (MANUAL) 1 % (0-0); SEG#(MANUAL) 14.43 x10^3/uL (1.8-6.8); SEGS% (MANUAL) 74 % (42-75)
[2020-07-07 13:54] LABS: METAMYELOCYTES# (MANUAL) 0.39 x10^3/uL (0-0); METAMYELOCYTES% (MANUAL) 2 % (0-1); MONOS#(MANUAL) 3.51 x10^3/uL (0.3-2.7); MONOS% (MANUAL) 18 % (2-9)
[2020-07-07 13:55] LABS: <PLATELET ESTIMATE> INCREASED; <PLT MORPHOLOGY> NORMAL PLT MORPH; <RBC MORPHOLOGY> NORMAL
[2020-07-07] MEDS: ONDANSETRON 16 MG, DEXAMETHASONE 10 MG in SODIUM CHLORIDE 0.9% 50 ML IVPB SCH (14:28)
[2020-07-07] MEDS: SODIUM CHLORIDE 0.9% IV SCH ×3 (15:08→21:10)
[2020-07-07] MEDS: CISPLATIN IV SCH (15:08)
[2020-07-07] MEDS: ETOPOSIDE 140 MG in SODIUM CHLORIDE 0.9% 500 ML IV SCH (16:34)
[2020-07-07] MEDS: IFOSFAMIDE IV SCH (18:46)
[2020-07-07 19:38] VITALS: BP 120/72
[2020-07-07] MEDS: MESNA IV SCH (21:10)
[2020-07-08 00:58] VITALS: BP 114/64
[2020-07-08] MEDS: OMEPRAZOLE 20 MG CAPSULE.DR PO SCH (05:46)
[2020-07-08] MEDS: SODIUM CHLORIDE 0.9% 1,000 ML IV SCH ×2 (06:00→15:10)
[2020-07-08 06:44] VITALS: BP 129/80
[2020-07-08 06:44] LABS: MEAN CORPUSCULAR HGB CONC 33.4 g/dL (33.2-36.2); MEAN PLATELET VOLUME 6.3 fL (7.4-10.4); PLATELET COUNT 379 x10^3/uL (130-400); RED BLOOD COUNT 3.91 x10^6/uL (4.38-5.82); RED CELL DISTRIBUTION WIDTH 17.4 % (9.4-14.8)
[2020-07-08 06:53] LABS: ALANINE AMINOTRANSFERASE 51 U/L (12-78); ALBUMIN 2.6 g/dL (3.4-5.0); ANION GAP 4 mmol/L (5-15); CALCIUM 8.6 mg/dL (8.5-10.1); CHLORIDE 102 mmol/L (98-107); CREATININE 0.53 mg/dL (0.7-1.3)
[2020-07-08 06:55] LABS: ALKALINE PHOSPHATASE 82 U/L (45-117); BILIRUBIN,TOTAL 0.2 mg/dL (0.2-1.0); TOTAL PROTEIN 5.8 g/dL (6.4-8.2)
[2020-07-08 08:02] LABS: MD YES
[2020-07-08 08:05] LABS: MICROSCOPIC NOT IND
[2020-07-08 08:06] LABS: SEGS% (MANUAL) 64 % (42-75)
[2020-07-08 08:07] LABS: BAND#(MANUAL) 0.68 x10^3/uL; BANDS%(MANUAL) 6 % (0-7); BASOS#(MANUAL) 0.11 x10^3/uL (0-0.1); BASOS% (MANUAL) 1 % (0-1); LYMPH#(MANUAL) 1.37 x10^3/uL (1-3.4); LYMPHS% (MANUAL) 12 % (22-44); METAMYELOCYTES# (MANUAL) 0.11 x10^3/uL (0-0); METAMYELOCYTES% (MANUAL) 1 % (0-1); MONOS% (MANUAL) 14 % (2-9); MYELOCYTES# (MANUAL) 0.23 x10^3/uL (0-0); MYELOCYTES% (MANUAL) 2 % (0-0)
[2020-07-08 08:08] LABS: <PLATELET ESTIMATE> ADEQUATE; <PLT MORPHOLOGY> NORMAL PLT MORPH; ANISOCYTOSIS 1+; PMNS WITH VACUOLES 1+
[2020-07-08] MEDS: APIXABAN 5 MG TABLET PO SCH ×2 (09:05→20:33)
[2020-07-08] MEDS: OLANZAPINE 5 MG TABLET PO SCH (09:05)
[2020-07-08] MEDS: SIMETHICONE 125 MG CHEW TAB PO PRN (12:22)
[2020-07-08] MEDS: ONDANSETRON 16 MG, DEXAMETHASONE 10 MG in SODIUM CHLORIDE 0.9% 50 ML IVPB SCH (14:29)
[2020-07-08 14:36] VITALS: BP 121/74
[2020-07-08] MEDS: CISPLATIN IV SCH (15:13)
[2020-07-08] MEDS: SODIUM CHLORIDE 0.9% IV SCH ×3 (15:13→20:28)
[2020-07-08] MEDS: ETOPOSIDE 140 MG in SODIUM CHLORIDE 0.9% 500 ML IV SCH (16:33)
[2020-07-08] MEDS: IFOSFAMIDE IV SCH (18:49)
[2020-07-08 19:41] VITALS: BP 110/67
[2020-07-08] MEDS: MESNA IV SCH (20:28)
[2020-07-09 04:38] VITALS: BP 105/58
[2020-07-09 05:13] LABS: MEAN CORPUSCULAR HEMOGLOBIN 32.2 pg (27.5-34.5); MEAN CORPUSCULAR HGB CONC 33.9 g/dL (33.2-36.2); MEAN PLATELET VOLUME 6.3 fL (7.4-10.4); PLATELET COUNT 343 x10^3/uL (130-400); RED BLOOD COUNT 3.98 x10^6/uL (4.38-5.82); RED CELL DISTRIBUTION WIDTH 17.1 % (9.4-14.8)
[2020-07-09 05:18] LABS: ALANINE AMINOTRANSFERASE 112 U/L (12-78); ALBUMIN 2.9 g/dL (3.4-5.0); ANION GAP 5 mmol/L (5-15); CALCIUM 8.7 mg/dL (8.5-10.1); CHLORIDE 101 mmol/L (98-107); CREATININE 0.47 mg/dL (0.7-1.3)
[2020-07-09 05:21] LABS: ALKALINE PHOSPHATASE 84 U/L (45-117); BILIRUBIN,TOTAL 0.2 mg/dL (0.2-1.0); TOTAL PROTEIN 6.2 g/dL (6.4-8.2)
[2020-07-09 06:23] LABS: MD YES
[2020-07-09 06:25] LABS: ANISOCYTOSIS 1+; BAND#(MANUAL) 0.26 x10^3/uL; BANDS%(MANUAL) 3 % (0-7); LYMPH#(MANUAL) 1.23 x10^3/uL (1-3.4); LYMPHS% (MANUAL) 14 % (22-44); MONOS#(MANUAL) 0.44 x10^3/uL (0.3-2.7); MONOS% (MANUAL) 5 % (2-9); MYELOCYTES# (MANUAL) 0.09 x10^3/uL (0-0); MYELOCYTES% (MANUAL) 1 % (0-0); POLYCHROMASIA 1+; SEG#(MANUAL) 6.78 x10^3/uL (1.8-6.8); SEGS% (MANUAL) 77 % (42-75)
[2020-07-09 06:26] LABS: <PLATELET ESTIMATE> ADEQUATE; PMNS WITH VACUOLES 1+; SMALL PLATELETS 1+
[2020-07-09] MEDS: OMEPRAZOLE 20 MG CAPSULE.DR PO SCH (06:27)
[2020-07-09 07:44] VITALS: BP 116/78
[2020-07-09] MEDS: SODIUM CHLORIDE 0.9% 1,000 ML IV SCH ×3 (07:51→16:27)
[2020-07-09 08:02] LABS: MICROSCOPIC NOT IND
[2020-07-09] MEDS: APIXABAN 5 MG TABLET PO SCH ×2 (08:18→21:06)
[2020-07-09] MEDS ORDERED: OLANZAPINE 5 MG TABLET PO SCH (09:00)
[2020-07-09] MEDS: SIMETHICONE 125 MG CHEW TAB PO PRN (12:51)
[2020-07-09 13:38] VITALS: BP 113/73
[2020-07-09] MEDS: ONDANSETRON 16 MG, DEXAMETHASONE 10 MG in SODIUM CHLORIDE 0.9% 50 ML IVPB SCH (14:22)
[2020-07-09] MEDS: CISPLATIN IV SCH (15:09)
[2020-07-09] MEDS: SODIUM CHLORIDE 0.9% IV SCH ×3 (15:09→20:12)
[2020-07-09] MEDS: ETOPOSIDE 140 MG in SODIUM CHLORIDE 0.9% 500 ML IV SCH (16:22)
[2020-07-09] MEDS: IFOSFAMIDE IV SCH (18:41)
[2020-07-09 19:09] VITALS: BP 105/69
[2020-07-09] MEDS: MESNA IV SCH (20:12)
[2020-07-10 00:47] VITALS: BP 101/57
[2020-07-10] MEDS: OMEPRAZOLE 20 MG CAPSULE.DR PO SCH (05:09)
[2020-07-10 05:26] LABS: BASOPHILS % (AUTO) 1 % (0-1); EOSINOPHILS % (AUTO) 0 % (1-7); LYMPHOCYTES % (AUTO) 16 % (22-44); MEAN CORPUSCULAR HEMOGLOBIN 31.4 pg (27.5-34.5); MEAN CORPUSCULAR HGB CONC 33.4 g/dL (33.2-36.2); MEAN PLATELET VOLUME 6.5 fL (7.4-10.4); MONOCYTES % (AUTO) 6 % (2-9); NEUTROPHILS % (AUTO) 78 % (42-75); PLATELET COUNT 307 x10^3/uL (130-400); RED BLOOD COUNT 4.06 x10^6/uL (4.38-5.82); RED CELL DISTRIBUTION WIDTH 17.4 % (9.4-14.8)
[2020-07-10 05:35] LABS: ALBUMIN 2.9 g/dL (3.4-5.0); ANION GAP 5 mmol/L (5-15); CALCIUM 8.6 mg/dL (8.5-10.1); CHLORIDE 101 mmol/L (98-107)
[2020-07-10 05:39] LABS: ALANINE AMINOTRANSFERASE 173 U/L (12-78); ALKALINE PHOSPHATASE 80 U/L (45-117); BILIRUBIN,TOTAL 0.2 mg/dL (0.2-1.0); CREATININE 0.46 mg/dL (0.7-1.3); TOTAL PROTEIN 6.3 g/dL (6.4-8.2)
[2020-07-10 05:58] LABS: MD SCAN
[2020-07-10 07:02] VITALS: BP 107/65
[2020-07-10] MEDS: APIXABAN 5 MG TABLET PO SCH ×2 (07:45→21:42)
[2020-07-10 08:52] LABS: MICROSCOPIC NOT IND
[2020-07-10 14:35] VITALS: BP 115/69
[2020-07-10 18:44] VITALS: BP 101/65
[2020-07-10] MEDS: SIMETHICONE 125 MG CHEW TAB PO PRN (22:47)
[2020-07-11 01:23] VITALS: BP 98/64
[2020-07-11] MEDS: OMEPRAZOLE 20 MG CAPSULE.DR PO SCH (06:28)
[2020-07-11 07:37] VITALS: BP 113/72
[2020-07-11 08:02] LABS: BASOPHILS % (AUTO) 1 % (0-1); EOSINOPHILS % (AUTO) 0 % (1-7); LYMPHOCYTES % (AUTO) 15 % (22-44); MEAN CORPUSCULAR HEMOGLOBIN 32.3 pg (27.5-34.5); MEAN CORPUSCULAR HGB CONC 34.4 g/dL (33.2-36.2); MEAN PLATELET VOLUME 6.2 fL (7.4-10.4); MONOCYTES % (AUTO) 3 % (2-9); NEUTROPHILS % (AUTO) 81 % (42-75); PLATELET COUNT 268 x10^3/uL (130-400); RED BLOOD COUNT 4.19 x10^6/uL (4.38-5.82); RED CELL DISTRIBUTION WIDTH 18.2 % (9.4-14.8)
[2020-07-11 08:03] LABS: MD NO
[2020-07-11 08:53] LABS: ALANINE AMINOTRANSFERASE 155 U/L (12-78); ALBUMIN 2.9 g/dL (3.4-5.0); ANION GAP 6 mmol/L (5-15); CALCIUM 8.4 mg/dL (8.5-10.1); CHLORIDE 98 mmol/L (98-107)
[2020-07-11 08:56] LABS: ALKALINE PHOSPHATASE 97 U/L (45-117); BILIRUBIN,TOTAL 0.2 mg/dL (0.2-1.0); CREATININE 0.76 mg/dL (0.7-1.3); TOTAL PROTEIN 6.4 g/dL (6.4-8.2)
[2020-07-11] MEDS ORDERED: APIX5TAB PO (09:22)
[2020-07-11] MEDS ORDERED: POTASSIUM CHLORIDE PMX 100 ML IV ONE (09:30)
[2020-07-11] MEDS: APIXABAN 5 MG TABLET PO SCH (09:53)
== END 2020-07-11 12:20 | disposition home or self-care (01) | DRG 182 ==
LOC: 4NW 09:09 → DCLOUNGE 07-11 12:15
PROVIDERS: ADMIT Internal Medicine; ATTEND Internal Medicine
PROC: 02HV33Z Insertion of Infusion Device into Superior Vena Cava, Percutaneous Approach (ICD-10-PCS; principal; 2020-07-05)
PROC: B5181ZA Fluoroscopy of Superior Vena Cava using Low Osmolar Contrast, Guidance (ICD-10-PCS; 2020-07-05)
PROC: B548ZZA Ultrasonography of Superior Vena Cava, Guidance (ICD-10-PCS; 2020-07-05)
DX: C38.3 Malignant neoplasm of mediastinum, part unspecified (principal); D72.829 Elevated white blood cell count, unspecified; K21.9 Gastro-esophageal reflux disease without esophagitis; K59.00 Constipation, unspecified; T45.1X5A Adverse effect of antineoplastic and immunosuppressive drugs, initial encounter; Y92.89 Other specified places as the place of occurrence of the external cause; Z79.01 Long term (current) use of anticoagulants; Z86.711 Personal history of pulmonary embolism
CPT/HCPCS: 36415; 36573; 70553; 80053; 81003; 85025; G0378; J1100; J1453; J2405; J3480; J9060; J9181; J9209; A9575; C1751; J7030; J7040; J7050; J9208

== ENCOUNTER → 2020-07-12 | Outpatient (CLI) | payer OTHER, MEDICAID ==
[~2020-07-12] MED LIST changes: +APIX5TAB PO; +GADOTERATE 10 MMOL/20ML SYR ONE
== END | disposition home or self-care (01) ==
LOC: CFH 07:14 → EDSTATUS 08:00
PROVIDERS: ATTEND Radiology Radiation Oncology
DX: C79.31 Secondary malignant neoplasm of brain (principal)
CPT/HCPCS: 70553; A9575

== ENCOUNTER 2020-07-20 19:07 | Inpatient (IN) | payer OTHER, MEDICAID ==
[~2020-07-20] VITALS: Ht 165.1 cm; Wt 82.0 kg
[~2020-07-20 19:07] MED LIST changes: -GADOTERATE 10 MMOL/20ML SYR ONE
--- NOTE | 2020-07-20 19:15 | NUR ---
Pt arrived with complaints of fever, chills, LOW, fatigue, and diarrhea. Pt states that he finished a round of chemo two weeks ago and his next round is on the . Father at bedside, EKG done, connected to all monitors, NADN. LEBLANC
--- NOTE | 2020-07-20 19:20 | NUR ---
MD at bedside to discuss POC
--- NOTE | 2020-07-20 19:22 | NUR ---
Pt ambulatory with steady gait from triage to pt room
[2020-07-20] MEDS ORDERED: SODIUM CHLORIDE 0.9% 1,000 ML IV ONE (20:00)
[2020-07-20] MEDS ORDERED: SODIUM CHLORIDE 0.9% 1,000ML IVBOLUS ONE (20:00)
[2020-07-20] MEDS ORDERED: SODIUM CHLORIDE FLUSH 10ML SYR IVF ONE (20:00)
--- NOTE | 2020-07-20 20:20 | NUR ---
Pt to CT
[2020-07-20 20:28] LABS: MEAN CORPUSCULAR HEMOGLOBIN 31.8 pg (27.5-34.5); MEAN CORPUSCULAR HGB CONC 34.1 g/dL (33.2-36.2); MEAN PLATELET VOLUME 7.4 fL (7.4-10.4); PLATELET COUNT 203 x10^3/uL (130-400); RED BLOOD COUNT 3.57 x10^6/uL (4.38-5.82)
[2020-07-20 20:30] LABS: MICROSCOPIC NOT IND
[2020-07-20 20:33] LABS: MD YES
[2020-07-20 20:41] LABS: ALANINE AMINOTRANSFERASE 46 U/L (12-78); ALBUMIN 3.3 g/dL (3.4-5.0); ANION GAP 4 mmol/L (5-15); CALCIUM 9.2 mg/dL (8.5-10.1); CHLORIDE 106 mmol/L (98-107); CREATININE 0.76 mg/dL (0.7-1.3)
[2020-07-20 20:44] LABS: ALKALINE PHOSPHATASE 204 U/L (45-117); BILIRUBIN,TOTAL 0.2 mg/dL (0.2-1.0); TOTAL PROTEIN 7.1 g/dL (6.4-8.2)
[2020-07-20] MEDS ORDERED: PIPERACILLIN/TAZO 4.5 GM in SODIUM CHLORIDE 0.9% 100 ML IVPB ONE (21:30)
[2020-07-20] MEDS ORDERED: PHARMACOKINETIC CONSULTATION MC ONE ×2 (21:30→22:30)
[2020-07-20] MEDS ORDERED: SODIUM CHLORIDE FLUSH 10ML SYR IVF PRN (21:30)
[2020-07-20] MEDS ORDERED: VANCOMYCIN 2,000 MG in SODIUM CHLORIDE 0.9% 500 ML IV ONE (21:30)
[2020-07-20] MEDS ORDERED: VANCOMYCIN PER PHARMACY MC ONE (21:30)
[2020-07-20] MEDS ORDERED: PHARMACOKINETIC MONITORING MC ONE (21:30)
[2020-07-20 21:42] LABS: BAND#(MANUAL) 6.57 x10^3/uL; BANDS%(MANUAL) 18 % (0-7); LYMPH#(MANUAL) 5.11 x10^3/uL (1-3.4); LYMPHS% (MANUAL) 14 % (22-44); METAMYELOCYTES# (MANUAL) 2.19 x10^3/uL (0-0); METAMYELOCYTES% (MANUAL) 6 % (0-1); MONOS#(MANUAL) 1.46 x10^3/uL (0.3-2.7); MONOS% (MANUAL) 4 % (2-9); MYELOCYTES# (MANUAL) 1.83 x10^3/uL (0-0); MYELOCYTES% (MANUAL) 5 % (0-0); PROGRANULOCYTES# (MANUAL) 7.67 x10^3/uL (0-0); PROGRANULOCYTES% (MANUAL) 21 % (0-0); SEG#(MANUAL) 11.68 x10^3/uL (1.8-6.8); SEGS% (MANUAL) 32 % (42-75)
[2020-07-20 21:43] LABS: ANISOCYTOSIS 1+
[2020-07-20 21:44] LABS: <PLATELET ESTIMATE> ADEQUATE; LARGE PLATELETS 1+; PMNS WITH VACUOLES 1+; POLYCHROMASIA 1+; TOXIC GRAN 2+
--- NOTE | 2020-07-20 22:02 | NUR ---
Report to Gene MOSER
[2020-07-20 22:29] VITALS: BP 107/76
[2020-07-20] MEDS: SODIUM CHLORIDE 0.9% 1,000 ML IV SCH (22:30)
[2020-07-20] MEDS ORDERED: BISACODYL 10 MG SUPP PR PRN (22:30)
[2020-07-20] MEDS ORDERED: PHARMACOKINETIC MONITORING MC PRN (22:30)
[2020-07-20] MEDS ORDERED: POLYETHYLENE GLYCOL 17 GM PACKET PO PRN (22:30)
[2020-07-20] MEDS ORDERED: VANCOMYCIN PER PHARMACY MC PRN (22:30)
[2020-07-20] MEDS ORDERED: ONDANSETRON ODT 4 MG PO PRN (22:30)
[2020-07-21] MEDS: PIPERACILLIN/TAZO 3.375 GM in DEXTROSE 5% 50 ML IV SCH ×4 (03:50→23:17)
[2020-07-21 03:55] VITALS: BP 119/51
[2020-07-21] MEDS: ACETAMINOPHEN 325 MG TABLET PO PRN (04:00)
[2020-07-21 04:59] LABS: MEAN CORPUSCULAR HEMOGLOBIN 31.8 pg (27.5-34.5); MEAN CORPUSCULAR HGB CONC 34.4 g/dL (33.2-36.2); MEAN PLATELET VOLUME 7.4 fL (7.4-10.4); PLATELET COUNT 187 x10^3/uL (130-400); RED BLOOD COUNT 3.01 x10^6/uL (4.38-5.82); RED CELL DISTRIBUTION WIDTH 19.2 % (9.4-14.8)
[2020-07-21 05:07] LABS: MD YES
[2020-07-21 05:09] LABS: ANION GAP 6 mmol/L (5-15); CALCIUM 8.4 mg/dL (8.5-10.1); CHLORIDE 109 mmol/L (98-107)
[2020-07-21 05:10] LABS: CREATININE 0.69 mg/dL (0.7-1.3)
[2020-07-21 05:52] LABS: BAND#(MANUAL) 2.15 x10^3/uL; BANDS%(MANUAL) 6 % (0-7); LYMPHS% (MANUAL) 5 % (22-44); METAMYELOCYTES# (MANUAL) 5.39 x10^3/uL (0-0); METAMYELOCYTES% (MANUAL) 15 % (0-1); MONOS#(MANUAL) 2.51 x10^3/uL (0.3-2.7); MONOS% (MANUAL) 7 % (2-9); MYELOCYTES# (MANUAL) 2.51 x10^3/uL (0-0); MYELOCYTES% (MANUAL) 7 % (0-0); PROGRANULOCYTES# (MANUAL) 2.51 x10^3/uL (0-0); PROGRANULOCYTES% (MANUAL) 7 % (0-0); SEG#(MANUAL) 17.95 x10^3/uL (1.8-6.8); SEGS% (MANUAL) 50 % (42-75)
[2020-07-21 05:53] LABS: <PLATELET ESTIMATE> ADEQUATE; <PLT MORPHOLOGY> NORMAL PLT MORPH; ANISOCYTOSIS 1+; OTHER CELLS # (MANUAL) 1.08 x10^3/uL (0-0); OTHER CELLS % (MANUAL) 3 % (0-0); PMNS WITH VACUOLES 1+; POLYCHROMASIA 1+; TOXIC GRAN 2+
[2020-07-21 05:57] LABS: SPHEROCYTES 1+
[2020-07-21 06:22] VITALS: BP 101/61
[2020-07-21] MEDS: FAMOTIDINE 20 MG TABLET PO SCH ×2 (08:17→21:08)
[2020-07-21] MEDS: BENZONATATE 100 MG CAPSULE PO SCH ×3 (08:17→21:08)
[2020-07-21] MEDS: LACTOBACILLUS CHEW TABLET PO SCH ×3 (08:17→21:08)
[2020-07-21] MEDS: OLANZAPINE 2.5 MG TABLET PO SCH (08:17)
[2020-07-21] MEDS: VANCOMYCIN 1,400 MG in SODIUM CHLORIDE 0.9% 250 ML IV SCH ×2 (08:17→18:16)
[2020-07-21] MEDS: POTASSIUM CHLORIDE 20 MEQ TAB.ER.PRT PO SCH (08:18)
[2020-07-21] MEDS: APIXABAN 5 MG TABLET PO SCH ×2 (08:18→21:08)
[2020-07-21] MEDS: SENNA/DOCUSATE TABLET PO SCH (08:18)
[2020-07-21] MEDS ORDERED: DEXAMETHASONE 4 MG TABLET PO SCH (09:00)
[2020-07-21 11:52] VITALS: BP 111/73
[2020-07-21] MEDS: SODIUM CHLORIDE 0.9% 1,000 ML IV SCH (12:00)
[2020-07-21] MEDS ORDERED: SODIUM CHLORIDE 0.9%, 500ML IVBOLUS ONE (16:00)
[2020-07-21 20:03] VITALS: BP 118/71
[2020-07-22] MEDS: SODIUM CHLORIDE 0.9% 1,000 ML IV SCH ×3 (01:36→20:39)
[2020-07-22] MEDS: VANCOMYCIN 1,400 MG in SODIUM CHLORIDE 0.9% 250 ML IV SCH ×3 (01:36→16:40)
[2020-07-22 01:41] VITALS: BP 116/62
[2020-07-22] MEDS: PIPERACILLIN/TAZO 3.375 GM in DEXTROSE 5% 50 ML IV SCH ×3 (04:48→18:29)
[2020-07-22 07:25] VITALS: BP 106/69
[2020-07-22 07:26] LABS: MEAN CORPUSCULAR HEMOGLOBIN 31.8 pg (27.5-34.5); PLATELET COUNT 250 x10^3/uL (130-400); RED CELL DISTRIBUTION WIDTH 19.7 % (9.4-14.8)
[2020-07-22 07:35] LABS: ALANINE AMINOTRANSFERASE 29 U/L (12-78); ALBUMIN 2.5 g/dL (3.4-5.0); ANION GAP 4 mmol/L (5-15); CALCIUM 8.6 mg/dL (8.5-10.1); CHLORIDE 114 mmol/L (98-107); CREATININE 0.77 mg/dL (0.7-1.3)
[2020-07-22 07:37] LABS: ALKALINE PHOSPHATASE 147 U/L (45-117); BILIRUBIN,TOTAL 0.2 mg/dL (0.2-1.0)
[2020-07-22 07:55] LABS: MD YES
[2020-07-22 08:02] LABS: BAND#(MANUAL) 5.54 x10^3/uL; BANDS%(MANUAL) 16 % (0-7); LYMPH#(MANUAL) 3.11 x10^3/uL (1-3.4); LYMPHS% (MANUAL) 9 % (22-44); METAMYELOCYTES# (MANUAL) 1.38 x10^3/uL (0-0); METAMYELOCYTES% (MANUAL) 4 % (0-1); MONOS#(MANUAL) 1.38 x10^3/uL (0.3-2.7); MONOS% (MANUAL) 4 % (2-9); MYELOCYTES# (MANUAL) 3.81 x10^3/uL (0-0); MYELOCYTES% (MANUAL) 11 % (0-0); SEG#(MANUAL) 19.03 x10^3/uL (1.8-6.8); SEGS% (MANUAL) 55 % (42-75)
[2020-07-22 08:06] LABS: OTHER CELLS # (MANUAL) 0.69 x10^3/uL (0-0); OTHER CELLS % (MANUAL) 2 % (0-0)
[2020-07-22 08:07] LABS: ANISOCYTOSIS 1+; POLYCHROMASIA 1+
[2020-07-22 08:08] LABS: <PLATELET ESTIMATE> ADEQUATE; <PLT MORPHOLOGY> NORMAL PLT MORPH
[2020-07-22 08:10] LABS: PMNS WITH VACUOLES 1+; TOXIC GRAN 2+
[2020-07-22] MEDS: SENNA/DOCUSATE TABLET PO SCH (09:00)
[2020-07-22] MEDS: APIXABAN 5 MG TABLET PO SCH ×2 (09:17→20:38)
[2020-07-22] MEDS: FAMOTIDINE 20 MG TABLET PO SCH ×2 (09:17→20:38)
[2020-07-22] MEDS: OLANZAPINE 2.5 MG TABLET PO SCH (09:17)
[2020-07-22] MEDS: POTASSIUM CHLORIDE 20 MEQ TAB.ER.PRT PO SCH (09:17)
[2020-07-22] MEDS: LACTOBACILLUS CHEW TABLET PO SCH ×3 (09:18→20:38)
[2020-07-22] MEDS: BENZONATATE 100 MG CAPSULE PO SCH ×3 (09:18→20:38)
[2020-07-22 12:31] VITALS: BP 129/86
[2020-07-22 19:06] VITALS: BP 121/76
[2020-07-22] MEDS ORDERED: VANCOMYCIN 1,400 MG in SODIUM CHLORIDE 0.9% 250 ML IV SCH (20:00)
[2020-07-22] MEDS: ACETAMINOPHEN 325 MG TABLET PO PRN (20:45)
[2020-07-23] MEDS: PIPERACILLIN/TAZO 3.375 GM in DEXTROSE 5% 50 ML IV SCH ×4 (00:11→18:04)
[2020-07-23 00:12] VITALS: BP 107/59
[2020-07-23] MEDS: VANCOMYCIN 1,400 MG in SODIUM CHLORIDE 0.9% 250 ML IV SCH (04:29)
[2020-07-23 05:22] LABS: MEAN CORPUSCULAR HEMOGLOBIN 31.5 pg (27.5-34.5); MEAN CORPUSCULAR HGB CONC 33.6 g/dL (33.2-36.2); PLATELET COUNT 373 x10^3/uL (130-400); RED BLOOD COUNT 3.19 x10^6/uL (4.38-5.82); RED CELL DISTRIBUTION WIDTH 19.8 % (9.4-14.8)
[2020-07-23 05:30] LABS: ALANINE AMINOTRANSFERASE 26 U/L (12-78); ALBUMIN 2.7 g/dL (3.4-5.0); ANION GAP 3 mmol/L (5-15); CALCIUM 9.2 mg/dL (8.5-10.1); CHLORIDE 111 mmol/L (98-107); CREATININE 1.24 mg/dL (0.7-1.3)
[2020-07-23 05:33] LABS: ALKALINE PHOSPHATASE 147 U/L (45-117); BILIRUBIN,TOTAL 0.2 mg/dL (0.2-1.0); TOTAL PROTEIN 6.3 g/dL (6.4-8.2)
[2020-07-23 05:51] LABS: MD YES
[2020-07-23 06:00] LABS: BAND#(MANUAL) 5.93 x10^3/uL; BANDS%(MANUAL) 15 % (0-7); LYMPH#(MANUAL) 2.77 x10^3/uL (1-3.4); LYMPHS% (MANUAL) 7 % (22-44); METAMYELOCYTES# (MANUAL) 1.58 x10^3/uL (0-0); METAMYELOCYTES% (MANUAL) 4 % (0-1); MONOS#(MANUAL) 0.79 x10^3/uL (0.3-2.7); MONOS% (MANUAL) 2 % (2-9); MYELOCYTES# (MANUAL) 3.95 x10^3/uL (0-0); MYELOCYTES% (MANUAL) 10 % (0-0); SEG#(MANUAL) 22.91 x10^3/uL (1.8-6.8); SEGS% (MANUAL) 58 % (42-75)
[2020-07-23 06:01] LABS: ANISOCYTOSIS 1+; OTHER CELLS # (MANUAL) 1.58 x10^3/uL (0-0); OTHER CELLS % (MANUAL) 4 % (0-0); POLYCHROMASIA 1+
[2020-07-23 06:02] LABS: PMNS WITH VACUOLES 1+; TOXIC GRAN 2+
[2020-07-23 06:03] LABS: <PLATELET ESTIMATE> ADEQUATE; <PLT MORPHOLOGY> NORMAL PLT MORPH
[2020-07-23] MEDS: SODIUM CHLORIDE 0.9% 1,000 ML IV SCH ×2 (06:11→18:00)
[2020-07-23 08:48] VITALS: BP 135/84
[2020-07-23 09:14] LABS: CLOSTRIDIUM DIFFICILE ANTIGEN NEGATIVE; CLOSTRIDIUM DIFFICILE TOXIN NEGATIVE (Negative)
[2020-07-23] MEDS: BENZONATATE 100 MG CAPSULE PO SCH ×3 (09:53→20:49)
[2020-07-23] MEDS: OLANZAPINE 2.5 MG TABLET PO SCH (09:53)
[2020-07-23] MEDS: LACTOBACILLUS CHEW TABLET PO SCH ×3 (09:53→20:49)
[2020-07-23] MEDS: FAMOTIDINE 20 MG TABLET PO SCH ×2 (09:53→20:49)
[2020-07-23] MEDS: APIXABAN 5 MG TABLET PO SCH ×2 (09:53→20:49)
[2020-07-23] MEDS: SENNA/DOCUSATE TABLET PO SCH (09:53)
[2020-07-23] MEDS: POTASSIUM CHLORIDE 20 MEQ TAB.ER.PRT PO SCH (09:53)
[2020-07-23 11:46] LABS: HCT (SEDRATE) 30.5 % (39.2-51.8)
[2020-07-23 12:41] VITALS: BP 109/73
[2020-07-23] MEDS: LINEZOLID PMX 600MG/300ML 300 ML IV SCH (13:54)
[2020-07-23] MEDS: ACETAMINOPHEN 325 MG TABLET PO PRN (16:51)
[2020-07-23 19:30] VITALS: BP 107/67
[2020-07-24] MEDS: PIPERACILLIN/TAZO 3.375 GM in DEXTROSE 5% 50 ML IV SCH ×4 (00:05→18:28)
[2020-07-24] MEDS: LINEZOLID PMX 600MG/300ML 300 ML IV SCH ×2 (01:47→13:57)
[2020-07-24 01:51] VITALS: BP 114/68
[2020-07-24 05:06] LABS: ANION GAP 3 mmol/L (5-15); CALCIUM 8.7 mg/dL (8.5-10.1); CHLORIDE 110 mmol/L (98-107); CREATININE 1.07 mg/dL (0.7-1.3)
[2020-07-24] MEDS: SODIUM CHLORIDE 0.9% 1,000 ML IV SCH ×2 (05:51→18:06)
[2020-07-24 08:04] VITALS: BP 122/70
[2020-07-24 08:53] LABS: MEAN CORPUSCULAR HEMOGLOBIN 31.7 pg (27.5-34.5); MEAN CORPUSCULAR HGB CONC 33.8 g/dL (33.2-36.2); PLATELET COUNT 433 x10^3/uL (130-400); RED BLOOD COUNT 3.08 x10^6/uL (4.38-5.82); RED CELL DISTRIBUTION WIDTH 19.4 % (9.4-14.8)
[2020-07-24 08:54] LABS: MD YES
[2020-07-24] MEDS: LACTOBACILLUS CHEW TABLET PO SCH ×3 (09:01→21:41)
[2020-07-24] MEDS: OLANZAPINE 2.5 MG TABLET PO SCH (09:01)
[2020-07-24] MEDS: BENZONATATE 100 MG CAPSULE PO SCH ×3 (09:01→21:41)
[2020-07-24] MEDS: APIXABAN 5 MG TABLET PO SCH ×2 (09:02→21:41)
[2020-07-24] MEDS: POTASSIUM CHLORIDE 20 MEQ TAB.ER.PRT PO SCH (09:02)
[2020-07-24] MEDS: SENNA/DOCUSATE TABLET PO SCH (09:02)
[2020-07-24] MEDS: FAMOTIDINE 20 MG TABLET PO SCH ×2 (09:02→21:41)
[2020-07-24] MEDS: ACETAMINOPHEN 325 MG TABLET PO PRN ×2 (09:08→22:02)
[2020-07-24 09:19] LABS: LYMPH#(MANUAL) 1.69 x10^3/uL (1-3.4); LYMPHS% (MANUAL) 5 % (22-44)
[2020-07-24 09:20] LABS: BAND#(MANUAL) 5.73 x10^3/uL; BANDS%(MANUAL) 17 % (0-7); METAMYELOCYTES# (MANUAL) 4.38 x10^3/uL (0-0); METAMYELOCYTES% (MANUAL) 13 % (0-1); MONOS% (MANUAL) 8 % (2-9); MYELOCYTES# (MANUAL) 3.03 x10^3/uL (0-0); MYELOCYTES% (MANUAL) 9 % (0-0); OTHER CELLS # (MANUAL) 0.34 x10^3/uL (0-0); SEG#(MANUAL) 15.84 x10^3/uL (1.8-6.8); SEGS% (MANUAL) 47 % (42-75)
[2020-07-24 09:22] LABS: OTHER CELLS % (MANUAL) 1 % (0-0); PMNS WITH VACUOLES 1+; TOXIC GRAN 1+
[2020-07-24 09:23] LABS: ANISOCYTOSIS 1+; POLYCHROMASIA 1+
[2020-07-24 09:24] LABS: <PLATELET ESTIMATE> INCREASED; <PLT MORPHOLOGY> NORMAL PLT MORPH
[2020-07-24 13:25] VITALS: BP 125/75
[2020-07-24 19:49] VITALS: BP 121/71
[2020-07-25] MEDS: PIPERACILLIN/TAZO 3.375 GM in DEXTROSE 5% 50 ML IV SCH ×4 (00:31→18:34)
[2020-07-25 01:39] VITALS: BP 94/58
[2020-07-25] MEDS: SODIUM CHLORIDE 0.9% 1,000 ML IV SCH ×2 (02:00→16:58)
[2020-07-25] MEDS: LINEZOLID PMX 600MG/300ML 300 ML IV SCH ×2 (02:15→14:40)
[2020-07-25 05:30] LABS: MEAN CORPUSCULAR HEMOGLOBIN 31.6 pg (27.5-34.5); MEAN PLATELET VOLUME 6.4 fL (7.4-10.4); PLATELET COUNT 495 x10^3/uL (130-400); RED BLOOD COUNT 3.14 x10^6/uL (4.38-5.82); RED CELL DISTRIBUTION WIDTH 19.5 % (9.4-14.8)
[2020-07-25 05:42] LABS: CHLORIDE 109 mmol/L (98-107)
[2020-07-25 05:50] LABS: ALANINE AMINOTRANSFERASE 21 U/L (12-78); ALBUMIN 2.5 g/dL (3.4-5.0); ALKALINE PHOSPHATASE 118 U/L (45-117); ANION GAP 5 mmol/L (5-15); BILIRUBIN,TOTAL 0.3 mg/dL (0.2-1.0); CALCIUM 9.3 mg/dL (8.5-10.1); CREATININE 1.28 mg/dL (0.7-1.3); TOTAL PROTEIN 6.5 g/dL (6.4-8.2)
[2020-07-25 05:53] LABS: MD YES
[2020-07-25 05:56] LABS: <PLATELET ESTIMATE> INCREASED; <PLT MORPHOLOGY> NORMAL PLT MORPH; ANISOCYTOSIS 1+; BAND#(MANUAL) 1.49 x10^3/uL; BANDS%(MANUAL) 5 % (0-7); LYMPH#(MANUAL) 2.97 x10^3/uL (1-3.4); LYMPHS% (MANUAL) 10 % (22-44); METAMYELOCYTES# (MANUAL) 3.86 x10^3/uL (0-0); METAMYELOCYTES% (MANUAL) 13 % (0-1); MONOS#(MANUAL) 1.78 x10^3/uL (0.3-2.7); MONOS% (MANUAL) 6 % (2-9); MYELOCYTES# (MANUAL) 0.89 x10^3/uL (0-0); MYELOCYTES% (MANUAL) 3 % (0-0); POLYCHROMASIA 1+; SEG#(MANUAL) 18.71 x10^3/uL (1.8-6.8); SEGS% (MANUAL) 63 % (42-75)
[2020-07-25 07:11] VITALS: BP 124/80
[2020-07-25] MEDS ORDERED: OMNIPAQUE 350 MG/ML, 75ML BOTTLE ONE (09:47)
[2020-07-25] MEDS: BENZONATATE 100 MG CAPSULE PO SCH ×3 (10:14→22:17)
[2020-07-25] MEDS: APIXABAN 5 MG TABLET PO SCH ×2 (10:14→22:17)
[2020-07-25] MEDS: POTASSIUM CHLORIDE 20 MEQ TAB.ER.PRT PO SCH (10:14)
[2020-07-25] MEDS: SENNA/DOCUSATE TABLET PO SCH (10:14)
[2020-07-25] MEDS: LACTOBACILLUS CHEW TABLET PO SCH ×3 (10:14→22:16)
[2020-07-25] MEDS: FAMOTIDINE 20 MG TABLET PO SCH ×2 (10:14→22:17)
[2020-07-25 12:15] VITALS: BP 127/82
[2020-07-25 18:35] VITALS: BP 103/68
[2020-07-25] MEDS: ACETAMINOPHEN 325 MG TABLET PO PRN (22:29)
[2020-07-26] MEDS: PIPERACILLIN/TAZO 3.375 GM in DEXTROSE 5% 50 ML IV SCH ×4 (00:12→17:57)
[2020-07-26 01:00] VITALS: BP 128/78
[2020-07-26] MEDS: SODIUM CHLORIDE 0.9% 1,000 ML IV SCH ×3 (01:19→21:24)
[2020-07-26] MEDS: LINEZOLID PMX 600MG/300ML 300 ML IV SCH ×2 (02:17→14:27)
[2020-07-26 05:00] LABS: MD YES; MEAN CORPUSCULAR HEMOGLOBIN 32.8 pg (27.5-34.5); MEAN CORPUSCULAR HGB CONC 35.4 g/dL (33.2-36.2); MEAN PLATELET VOLUME 6.3 fL (7.4-10.4); PLATELET COUNT 553 x10^3/uL (130-400); RED BLOOD COUNT 3.04 x10^6/uL (4.38-5.82); RED CELL DISTRIBUTION WIDTH 20.4 % (9.4-14.8)
[2020-07-26 05:06] LABS: CHLORIDE 108 mmol/L (98-107)
[2020-07-26 05:11] LABS: ANION GAP 5 mmol/L (5-15); CALCIUM 8.9 mg/dL (8.5-10.1); CREATININE 1.14 mg/dL (0.7-1.3)
[2020-07-26 05:44] LABS: <PLATELET ESTIMATE> INCREASED; <PLT MORPHOLOGY> NORMAL PLT MORPH; ANISOCYTOSIS 1+; BAND#(MANUAL) 0.98 x10^3/uL; BANDS%(MANUAL) 4 % (0-7); LYMPH#(MANUAL) 2.68 x10^3/uL (1-3.4); LYMPHS% (MANUAL) 11 % (22-44); METAMYELOCYTES# (MANUAL) 2.68 x10^3/uL (0-0); METAMYELOCYTES% (MANUAL) 11 % (0-1); MONOS#(MANUAL) 2.44 x10^3/uL (0.3-2.7); MONOS% (MANUAL) 10 % (2-9); MYELOCYTES# (MANUAL) 0.24 x10^3/uL (0-0); MYELOCYTES% (MANUAL) 1 % (0-0); POLYCHROMASIA 1+; SEG#(MANUAL) 15.37 x10^3/uL (1.8-6.8); SEGS% (MANUAL) 63 % (42-75)
[2020-07-26 05:45] LABS: TOXIC GRAN 1+
[2020-07-26 10:06] VITALS: BP 116/73
[2020-07-26] MEDS: ACETAMINOPHEN 325 MG TABLET PO PRN (10:11)
[2020-07-26] MEDS: POTASSIUM CHLORIDE 20 MEQ TAB.ER.PRT PO SCH (10:11)
[2020-07-26] MEDS: FAMOTIDINE 20 MG TABLET PO SCH ×2 (10:11→21:22)
[2020-07-26] MEDS: BENZONATATE 100 MG CAPSULE PO SCH ×3 (10:12→21:22)
[2020-07-26] MEDS: APIXABAN 5 MG TABLET PO SCH ×2 (10:12→21:22)
[2020-07-26] MEDS: LACTOBACILLUS CHEW TABLET PO SCH ×3 (10:12→21:22)
[2020-07-26] MEDS: SENNA/DOCUSATE TABLET PO SCH (10:12)
[2020-07-26 10:36] VITALS: BP 126/78
[2020-07-26 13:25] VITALS: BP 119/80
[2020-07-26 19:17] VITALS: BP 124/92
[2020-07-27] MEDS: PIPERACILLIN/TAZO 3.375 GM in DEXTROSE 5% 50 ML IV SCH ×4 (00:08→19:26)
[2020-07-27 00:13] VITALS: BP 121/75
[2020-07-27] MEDS: LINEZOLID PMX 600MG/300ML 300 ML IV SCH ×2 (02:03→14:37)
[2020-07-27 05:30] LABS: MEAN CORPUSCULAR HEMOGLOBIN 32.2 pg (27.5-34.5); MEAN CORPUSCULAR HGB CONC 34.7 g/dL (33.2-36.2); MEAN PLATELET VOLUME 6.4 fL (7.4-10.4); PLATELET COUNT 648 x10^3/uL (130-400); RED BLOOD COUNT 3.24 x10^6/uL (4.38-5.82); RED CELL DISTRIBUTION WIDTH 20.2 % (9.4-14.8)
[2020-07-27 05:38] LABS: INTERNATIONAL NORMALIZED RATIO 1.12 (0.93-1.1)
[2020-07-27 05:46] LABS: CHLORIDE 108 mmol/L (98-107)
[2020-07-27 05:53] LABS: ALANINE AMINOTRANSFERASE 27 U/L (12-78); ALBUMIN 2.6 g/dL (3.4-5.0); ALKALINE PHOSPHATASE 109 U/L (45-117); ANION GAP 7 mmol/L (5-15); BILIRUBIN,TOTAL 0.1 mg/dL (0.2-1.0); CALCIUM 8.9 mg/dL (8.5-10.1); TOTAL PROTEIN 6.6 g/dL (6.4-8.2)
[2020-07-27] MEDS: SODIUM CHLORIDE 0.9% 1,000 ML IV SCH ×3 (05:59→22:04)
[2020-07-27 06:14] LABS: MD YES
[2020-07-27 06:16] LABS: BAND#(MANUAL) 1.37 x10^3/uL; BANDS%(MANUAL) 7 % (0-7); LYMPH#(MANUAL) 1.76 x10^3/uL (1-3.4); LYMPHS% (MANUAL) 9 % (22-44); METAMYELOCYTES# (MANUAL) 1.18 x10^3/uL (0-0); METAMYELOCYTES% (MANUAL) 6 % (0-1); MONOS#(MANUAL) 1.37 x10^3/uL (0.3-2.7); MONOS% (MANUAL) 7 % (2-9); MYELOCYTES# (MANUAL) 0.59 x10^3/uL (0-0); MYELOCYTES% (MANUAL) 3 % (0-0); SEG#(MANUAL) 13.33 x10^3/uL (1.8-6.8); SEGS% (MANUAL) 68 % (42-75)
[2020-07-27 06:17] LABS: <PLATELET ESTIMATE> INCREASED; <PLT MORPHOLOGY> NORMAL PLT MORPH; ANISOCYTOSIS 1+; POLYCHROMASIA 1+
[2020-07-27 06:18] LABS: TOXIC GRAN 1+
[2020-07-27] MEDS: LACTOBACILLUS CHEW TABLET PO SCH ×3 (09:14→20:42)
[2020-07-27] MEDS: FAMOTIDINE 20 MG TABLET PO SCH ×2 (09:14→20:42)
[2020-07-27] MEDS: POTASSIUM CHLORIDE 20 MEQ TAB.ER.PRT PO SCH (09:14)
[2020-07-27] MEDS: APIXABAN 5 MG TABLET PO SCH ×2 (09:14→20:00)
[2020-07-27] MEDS: SENNA/DOCUSATE TABLET PO SCH (09:14)
[2020-07-27] MEDS: BENZONATATE 100 MG CAPSULE PO SCH ×3 (09:15→20:42)
[2020-07-27 09:37] VITALS: BP 122/72
[2020-07-27] MEDS ORDERED: LIDOCAINE 1%, 10ML ONE (10:40)
[2020-07-27] MEDS ORDERED: NALOXONE 1 MG/ML, 2ML ONE (10:48)
[2020-07-27] MEDS ORDERED: FENTANYL PF 100 MCG/2ML ONE (10:48)
[2020-07-27] MEDS ORDERED: FLUMAZENIL 0.1 MG/1 ML, 5ML ONE (10:48)
[2020-07-27] MEDS ORDERED: MIDAZOLAM 1 MG/ML, 5ML ONE (10:48)
[2020-07-27 12:58] VITALS: BP 123/87
[2020-07-27 19:44] VITALS: BP 127/77
[2020-07-27] MEDS: ACETAMINOPHEN 325 MG TABLET PO PRN (20:42)
[2020-07-28] MEDS: PIPERACILLIN/TAZO 3.375 GM in DEXTROSE 5% 50 ML IV SCH ×4 (01:20→20:42)
[2020-07-28] MEDS: LINEZOLID PMX 600MG/300ML 300 ML IV SCH ×2 (02:00→15:08)
[2020-07-28 02:02] VITALS: BP 116/73
[2020-07-28 07:05] VITALS: BP 100/64
[2020-07-28] MEDS: BENZONATATE 100 MG CAPSULE PO SCH ×3 (08:09→20:42)
[2020-07-28] MEDS: LACTOBACILLUS CHEW TABLET PO SCH ×3 (08:09→20:42)
[2020-07-28] MEDS: FAMOTIDINE 20 MG TABLET PO SCH ×2 (08:09→20:42)
[2020-07-28] MEDS: SENNA/DOCUSATE TABLET PO SCH (08:09)
[2020-07-28] MEDS: POTASSIUM CHLORIDE 20 MEQ TAB.ER.PRT PO SCH (08:09)
[2020-07-28] MEDS: APIXABAN 5 MG TABLET PO SCH ×2 (08:12→20:42)
[2020-07-28] MEDS: SODIUM CHLORIDE 0.9% 1,000 ML IV SCH ×2 (08:14→20:36)
[2020-07-28 13:42] VITALS: BP 107/60
[2020-07-28] MEDS ORDERED: CALCIUM CARBONATE 500 MG TAB.CHEW PO PRN (18:00)
[2020-07-28 18:20] VITALS: BP 136/88
[2020-07-29] MEDS: PIPERACILLIN/TAZO 3.375 GM in DEXTROSE 5% 50 ML IV SCH ×2 (02:01→08:42)
[2020-07-29 02:04] VITALS: BP 107/74
[2020-07-29] MEDS: LINEZOLID PMX 600MG/300ML 300 ML IV SCH (03:22)
[2020-07-29 05:04] LABS: MEAN CORPUSCULAR HEMOGLOBIN 32.5 pg (27.5-34.5); MEAN CORPUSCULAR HGB CONC 35.2 g/dL (33.2-36.2); PLATELET COUNT 691 x10^3/uL (130-400); RED CELL DISTRIBUTION WIDTH 19.9 % (9.4-14.8)
[2020-07-29 05:10] LABS: ALANINE AMINOTRANSFERASE 29 U/L (12-78); ALBUMIN 2.8 g/dL (3.4-5.0); ANION GAP 6 mmol/L (5-15); CALCIUM 9.2 mg/dL (8.5-10.1); CHLORIDE 108 mmol/L (98-107); CREATININE 1.11 mg/dL (0.7-1.3)
[2020-07-29 05:13] LABS: ALKALINE PHOSPHATASE 97 U/L (45-117); BILIRUBIN,TOTAL 0.2 mg/dL (0.2-1.0); TOTAL PROTEIN 6.7 g/dL (6.4-8.2)
[2020-07-29 06:05] LABS: MD YES
[2020-07-29 06:08] LABS: BAND#(MANUAL) 0.44 x10^3/uL; BANDS%(MANUAL) 4 % (0-7); LYMPH#(MANUAL) 1.31 x10^3/uL (1-3.4); LYMPHS% (MANUAL) 12 % (22-44); METAMYELOCYTES# (MANUAL) 0.44 x10^3/uL (0-0); METAMYELOCYTES% (MANUAL) 4 % (0-1); MONOS#(MANUAL) 0.65 x10^3/uL (0.3-2.7); MONOS% (MANUAL) 6 % (2-9); MYELOCYTES# (MANUAL) 0.11 x10^3/uL (0-0); MYELOCYTES% (MANUAL) 1 % (0-0); SEG#(MANUAL) 7.96 x10^3/uL (1.8-6.8); SEGS% (MANUAL) 73 % (42-75)
[2020-07-29 06:09] LABS: <PLATELET ESTIMATE> INCREASED; <PLT MORPHOLOGY> NORMAL PLT MORPH; ANISOCYTOSIS 1+; POLYCHROMASIA 1+; TOXIC GRAN 1+
[2020-07-29 08:03] VITALS: BP 105/69
[2020-07-29] MEDS: POTASSIUM CHLORIDE 20 MEQ TAB.ER.PRT PO SCH (08:42)
[2020-07-29] MEDS: BENZONATATE 100 MG CAPSULE PO SCH (08:42)
[2020-07-29] MEDS: FAMOTIDINE 20 MG TABLET PO SCH (08:42)
[2020-07-29] MEDS: APIXABAN 5 MG TABLET PO SCH (08:42)
[2020-07-29] MEDS: SODIUM CHLORIDE 0.9% 1,000 ML IV SCH (08:42)
[2020-07-29] MEDS: LACTOBACILLUS CHEW TABLET PO SCH (08:42)
[2020-07-29] MEDS: SENNA/DOCUSATE TABLET PO SCH (08:43)
[2020-07-29] MEDS ORDERED: AMOX1TAB64 PO (10:46)
[2020-07-29] MEDS ORDERED: LINE600T12 PO (10:46)
== END 2020-07-29 13:27 | disposition home or self-care (01) | DRG 853 ==
LOC: ED 20:04 → EDIP 21:29 → 4NW 22:17
PROVIDERS: ADMIT Family Medicine; ATTEND Internal Medicine
PROC: 0WBC3ZX Excision of Mediastinum, Percutaneous Approach, Diagnostic (ICD-10-PCS; principal; 2020-07-27)
DX: A41.9 Sepsis, unspecified organism (principal); J85.3 Abscess of mediastinum; J18.9 Pneumonia, unspecified organism; D68.69 Other thrombophilia; J90 Pleural effusion, not elsewhere classified; R65.20 Severe sepsis without septic shock; C62.90 Malignant neoplasm of unspecified testis, unspecified whether descended or undescended; D64.9 Anemia, unspecified; E88.09 Other disorders of plasma-protein metabolism, not elsewhere classified; Z79.01 Long term (current) use of anticoagulants; Z85.47 Personal history of malignant neoplasm of testis; Z86.711 Personal history of pulmonary embolism
CPT/HCPCS: 36415; 75989; 84145; 87449; 96374; 99285; J3490; 49405; 70450; 71045; 71046; 71250; 71260; 76700; 80048; 80053; 80202; 81003; 83605; 85025; 85610; 85651; 85730; 86140; 87040; 87070; 87075; 87081; 87102; 87205; 87305; 87324; 93005; 99156; 99157; G0378; J2020; J2250; J2543; J3010; J3370; Q9967; J2310; J7030; J7040; J7050

== ENCOUNTER 2020-08-08 08:48 | Inpatient (IN) | payer OTHER, MEDICAID ==
[~2020-08-08] VITALS: Ht 165.1 cm; Wt 80.0 kg
[~2020-08-08 08:48] MED LIST changes: +AMOX1TAB64 PO; +LINE600T12 PO
[2020-08-08 09:17] VITALS: BP 131/66
[2020-08-08 10:19] LABS: MEAN CORPUSCULAR HEMOGLOBIN 32.4 pg (27.5-34.5); MEAN CORPUSCULAR HGB CONC 35.1 g/dL (33.2-36.2); MEAN PLATELET VOLUME 6.1 fL (7.4-10.4); PLATELET COUNT 250 x10^3/uL (130-400); RED BLOOD COUNT 3.52 x10^6/uL (4.38-5.82)
[2020-08-08 10:29] LABS: ALANINE AMINOTRANSFERASE 79 U/L (12-78); ALBUMIN 3.6 g/dL (3.4-5.0); ANION GAP 5 mmol/L (5-15); CALCIUM 9.5 mg/dL (8.5-10.1); CHLORIDE 108 mmol/L (98-107)
[2020-08-08 10:30] LABS: ALKALINE PHOSPHATASE 116 U/L (45-117); BILIRUBIN,TOTAL 0.3 mg/dL (0.2-1.0); TOTAL PROTEIN 7.5 g/dL (6.4-8.2)
[2020-08-08 10:45] LABS: MICROSCOPIC AUTO
[2020-08-08 10:55] LABS: <PLATELET ESTIMATE> ADEQUATE; <PLT MORPHOLOGY> NORMAL PLT MORPH; ANISOCYTOSIS 1+; BASOS#(MANUAL) 0.05 x10^3/uL (0-0.1); BASOS% (MANUAL) 1 % (0-1); EOS#(MANUAL) 0.19 x10^3/uL (0.0-0.4); EOS% (MANUAL) 4 % (1-7); LYMPH#(MANUAL) 1.55 x10^3/uL (1-3.4); LYMPHS% (MANUAL) 33 % (22-44); MONOS#(MANUAL) 0.47 x10^3/uL (0.3-2.7); MONOS% (MANUAL) 10 % (2-9); POLYCHROMASIA 1+; SEG#(MANUAL) 2.44 x10^3/uL (1.8-6.8); SEGS% (MANUAL) 52 % (42-75)
[2020-08-08] MEDS ORDERED: PROCHLORPERAZINE 5 MG/ML, 2ML IV PRN (11:30)
[2020-08-08] MEDS ORDERED: LORazepam 2 MG/ML, 1ML IV PRN (11:30)
[2020-08-08] MEDS ORDERED: OLANZAPINE 2.5 MG TABLET PO SCH ×2 (11:50)
[2020-08-08] MEDS ORDERED: SODIUM CHLORIDE 0.9% 1,000 ML IV SCH (12:00)
[2020-08-08] MEDS: SODIUM CHLORIDE 0.9% 1,000 ML IV SCH ×2 (12:11→20:36)
[2020-08-08] MEDS: ENOXAPARIN 40 MG/0.4 ML SQ SCH (12:16)
[2020-08-08 12:24] VITALS: BP 121/81
[2020-08-08] MEDS ORDERED: LIDOCAINE/PRILOCAINE CRM W/TEG 5GM TP PRN (12:30)
[2020-08-08] MEDS: ONDANSETRON 16 MG, DEXAMETHASONE 20 MG in SODIUM CHLORIDE 0.9% 50 ML IVPB SCH (13:04)
[2020-08-08] MEDS: OLANZAPINE 5 MG TABLET PO SCH (13:04)
[2020-08-08] MEDS: CISPLATIN IV SCH (14:33)
[2020-08-08] MEDS: SODIUM CHLORIDE 0.9% IV SCH ×2 (14:33→17:36)
[2020-08-08] MEDS: OMEPRAZOLE 20 MG CAPSULE.DR PO SCH (15:56)
[2020-08-08] MEDS: ETOPOSIDE 140 MG in SODIUM CHLORIDE 0.9% 500 ML IVPB SCH (15:57)
[2020-08-08] MEDS ORDERED: MESNA IVPB ONE (16:00)
[2020-08-08] MEDS ORDERED: SODIUM CHLORIDE 0.9% IVPB ONE (16:00)
[2020-08-08] MEDS: BENZONATATE 100 MG CAPSULE PO SCH ×2 (16:04→20:35)
[2020-08-08] MEDS: MESNA IVPB SCH (17:34)
[2020-08-08] MEDS: SODIUM CHLORIDE 0.9% IVPB SCH (17:34)
[2020-08-08] MEDS: IFOSFAMIDE IV SCH (17:36)
[2020-08-08 19:29] VITALS: BP 118/67
[2020-08-08] MEDS ORDERED: APIXABAN 5 MG TABLET PO SCH (21:00)
[2020-08-08] MEDS ORDERED: FAMOTIDINE 20 MG TABLET PO SCH (21:00)
[2020-08-09 01:59] VITALS: BP 117/72
[2020-08-09] MEDS: SODIUM CHLORIDE 0.9% 1,000 ML IV SCH ×3 (04:52→20:55)
[2020-08-09 05:09] LABS: BASOPHILS % (AUTO) 0 % (0-1); EOSINOPHILS % (AUTO) 0 % (1-7); LYMPHOCYTES % (AUTO) 14 % (22-44); MEAN CORPUSCULAR HGB CONC 35.5 g/dL (33.2-36.2); MEAN PLATELET VOLUME 6.6 fL (7.4-10.4); MONOCYTES % (AUTO) 4 % (2-9); NEUTROPHILS % (AUTO) 82 % (42-75); PLATELET COUNT 172 x10^3/uL (130-400); RED BLOOD COUNT 2.74 x10^6/uL (4.38-5.82); RED CELL DISTRIBUTION WIDTH 20.8 % (9.4-14.8)
[2020-08-09 05:19] LABS: ALANINE AMINOTRANSFERASE 72 U/L (12-78); ANION GAP 8 mmol/L (5-15); CALCIUM 8.4 mg/dL (8.5-10.1); CHLORIDE 110 mmol/L (98-107); CREATININE 0.82 mg/dL (0.7-1.3)
[2020-08-09 05:21] LABS: ALKALINE PHOSPHATASE 97 U/L (45-117); BILIRUBIN,TOTAL 0.4 mg/dL (0.2-1.0); TOTAL PROTEIN 6.4 g/dL (6.4-8.2)
[2020-08-09] MEDS ORDERED: OMEPRAZOLE 20 MG CAPSULE.DR PO SCH (06:00)
[2020-08-09] MEDS: OMEPRAZOLE 20 MG CAPSULE.DR PO SCH (06:13)
[2020-08-09 07:06] VITALS: BP 110/59
[2020-08-09 08:12] LABS: MICROSCOPIC NOT IND
[2020-08-09] MEDS: BENZONATATE 100 MG CAPSULE PO SCH ×3 (09:00→20:54)
[2020-08-09] MEDS: OLANZAPINE 5 MG TABLET PO SCH (09:42)
[2020-08-09] MEDS: POTASSIUM CHLORIDE 20 MEQ TAB.ER.PRT PO SCH (09:42)
[2020-08-09] MEDS: ENOXAPARIN 40 MG/0.4 ML SQ SCH (12:16)
[2020-08-09] MEDS: ONDANSETRON 16 MG, DEXAMETHASONE 20 MG in SODIUM CHLORIDE 0.9% 50 ML IVPB SCH (12:59)
[2020-08-09 13:06] VITALS: BP 134/73
[2020-08-09] MEDS: CISPLATIN IV SCH (13:59)
[2020-08-09] MEDS: SODIUM CHLORIDE 0.9% IV SCH ×2 (13:59→16:45)
[2020-08-09] MEDS: ETOPOSIDE 140 MG in SODIUM CHLORIDE 0.9% 500 ML IVPB SCH (15:28)
[2020-08-09] MEDS: IFOSFAMIDE IV SCH (16:45)
[2020-08-09] MEDS: MESNA IVPB SCH (16:49)
[2020-08-09] MEDS: SODIUM CHLORIDE 0.9% IVPB SCH (16:49)
[2020-08-09 19:31] VITALS: BP 138/76
[2020-08-10 01:30] VITALS: BP 128/79
[2020-08-10 05:08] LABS: MICROSCOPIC NOT IND
[2020-08-10] MEDS: SODIUM CHLORIDE 0.9% 1,000 ML IV SCH ×3 (05:10→19:32)
[2020-08-10] MEDS: OMEPRAZOLE 20 MG CAPSULE.DR PO SCH (05:28)
[2020-08-10 05:53] LABS: ALBUMIN 2.9 g/dL (3.4-5.0); ANION GAP 6 mmol/L (5-15); BASOPHILS % (AUTO) 0 % (0-1); CALCIUM 8.8 mg/dL (8.5-10.1); CHLORIDE 112 mmol/L (98-107); EOSINOPHILS % (AUTO) 0 % (1-7); LYMPHOCYTES % (AUTO) 11 % (22-44); MEAN CORPUSCULAR HEMOGLOBIN 33.7 pg (27.5-34.5); MEAN CORPUSCULAR HGB CONC 36.6 g/dL (33.2-36.2); MEAN PLATELET VOLUME 6.6 fL (7.4-10.4); MONOCYTES % (AUTO) 12 % (2-9); NEUTROPHILS % (AUTO) 77 % (42-75); PLATELET COUNT 158 x10^3/uL (130-400); RED BLOOD COUNT 2.57 x10^6/uL (4.38-5.82); RED CELL DISTRIBUTION WIDTH 20.9 % (9.4-14.8)
[2020-08-10 05:57] LABS: ALANINE AMINOTRANSFERASE 61 U/L (12-78); ALKALINE PHOSPHATASE 91 U/L (45-117); BILIRUBIN,TOTAL 0.4 mg/dL (0.2-1.0); CREATININE 0.73 mg/dL (0.7-1.3)
[2020-08-10 09:05] VITALS: BP 125/73
[2020-08-10] MEDS: POTASSIUM CHLORIDE 20 MEQ TAB.ER.PRT PO SCH (09:09)
[2020-08-10] MEDS: OLANZAPINE 5 MG TABLET PO SCH (09:09)
[2020-08-10] MEDS: BENZONATATE 100 MG CAPSULE PO SCH ×3 (09:16→19:33)
[2020-08-10] MEDS: ENOXAPARIN 40 MG/0.4 ML SQ SCH (12:13)
[2020-08-10] MEDS: ONDANSETRON 16 MG, DEXAMETHASONE 20 MG in SODIUM CHLORIDE 0.9% 50 ML IVPB SCH (13:02)
[2020-08-10 13:44] VITALS: BP 115/89
[2020-08-10] MEDS: CISPLATIN IV SCH (13:56)
[2020-08-10] MEDS: SODIUM CHLORIDE 0.9% IV SCH ×2 (13:56→16:52)
[2020-08-10] MEDS: ETOPOSIDE 140 MG in SODIUM CHLORIDE 0.9% 500 ML IVPB SCH (15:41)
[2020-08-10] MEDS: SODIUM CHLORIDE 0.9% IVPB SCH (15:46)
[2020-08-10] MEDS: MESNA IVPB SCH (15:46)
[2020-08-10] MEDS: IFOSFAMIDE IV SCH (16:52)
[2020-08-10 19:21] VITALS: BP 122/78
[2020-08-11 01:35] VITALS: BP 99/63
[2020-08-11] MEDS: SODIUM CHLORIDE 0.9% 1,000 ML IV SCH ×3 (03:25→20:09)
[2020-08-11] MEDS: OMEPRAZOLE 20 MG CAPSULE.DR PO SCH (05:15)
[2020-08-11 05:50] LABS: ALBUMIN 2.9 g/dL (3.4-5.0); ANION GAP 6 mmol/L (5-15); CALCIUM 8.8 mg/dL (8.5-10.1); CHLORIDE 108 mmol/L (98-107)
[2020-08-11 05:56] LABS: ALANINE AMINOTRANSFERASE 78 U/L (12-78); ALKALINE PHOSPHATASE 91 U/L (45-117); BILIRUBIN,TOTAL 0.4 mg/dL (0.2-1.0); CREATININE 0.65 mg/dL (0.7-1.3)
[2020-08-11 06:28] LABS: BASOPHILS % (AUTO) 0 % (0-1); EOSINOPHILS % (AUTO) 0 % (1-7); LYMPHOCYTES % (AUTO) 16 % (22-44); MEAN CORPUSCULAR HEMOGLOBIN 32.6 pg (27.5-34.5); MEAN CORPUSCULAR HGB CONC 35.4 g/dL (33.2-36.2); MEAN PLATELET VOLUME 6.8 fL (7.4-10.4); MONOCYTES % (AUTO) 11 % (2-9); NEUTROPHILS % (AUTO) 73 % (42-75); PLATELET COUNT 160 x10^3/uL (130-400); RED BLOOD COUNT 2.61 x10^6/uL (4.38-5.82); RED CELL DISTRIBUTION WIDTH 21.2 % (9.4-14.8)
[2020-08-11 06:30] LABS: MICROSCOPIC NOT IND
[2020-08-11 07:23] VITALS: BP 119/76
[2020-08-11] MEDS: POTASSIUM CHLORIDE 20 MEQ TAB.ER.PRT PO SCH (09:58)
[2020-08-11] MEDS: OLANZAPINE 5 MG TABLET PO SCH (09:58)
[2020-08-11] MEDS: BENZONATATE 100 MG CAPSULE PO SCH ×3 (09:58→20:09)
[2020-08-11 12:43] VITALS: BP 138/75
[2020-08-11] MEDS: ENOXAPARIN 40 MG/0.4 ML SQ SCH (13:30)
[2020-08-11] MEDS: ONDANSETRON 16 MG, DEXAMETHASONE 20 MG in SODIUM CHLORIDE 0.9% 50 ML IVPB SCH (13:30)
[2020-08-11] MEDS: SODIUM CHLORIDE 0.9% IV SCH ×2 (14:28→17:20)
[2020-08-11] MEDS: CISPLATIN IV SCH (14:28)
[2020-08-11] MEDS: SODIUM CHLORIDE 0.9% IVPB SCH (15:22)
[2020-08-11] MEDS: MESNA IVPB SCH (15:22)
[2020-08-11] MEDS: ETOPOSIDE 140 MG in SODIUM CHLORIDE 0.9% 500 ML IVPB SCH (15:55)
[2020-08-11] MEDS: IFOSFAMIDE IV SCH (17:20)
[2020-08-11 19:42] VITALS: BP 116/73
[2020-08-11] MEDS ORDERED: CALCIUM CARBONATE 500 MG TAB.CHEW ONE (21:05)
[2020-08-11] MEDS: CALCIUM CARBONATE 500 MG TAB.CHEW PO PRN (21:07)
[2020-08-12 04:02] VITALS: BP 114/72
[2020-08-12] MEDS: SODIUM CHLORIDE 0.9% 1,000 ML IV SCH ×3 (04:21→20:16)
[2020-08-12 04:49] LABS: MICROSCOPIC NOT IND
[2020-08-12 04:52] LABS: BASOPHILS % (AUTO) 0 % (0-1); EOSINOPHILS % (AUTO) 0 % (1-7); LYMPHOCYTES % (AUTO) 18 % (22-44); MEAN CORPUSCULAR HEMOGLOBIN 33.6 pg (27.5-34.5); MEAN CORPUSCULAR HGB CONC 36.2 g/dL (33.2-36.2); MEAN PLATELET VOLUME 6.7 fL (7.4-10.4); MONOCYTES % (AUTO) 7 % (2-9); NEUTROPHILS % (AUTO) 75 % (42-75); PLATELET COUNT 171 x10^3/uL (130-400); RED BLOOD COUNT 2.57 x10^6/uL (4.38-5.82); RED CELL DISTRIBUTION WIDTH 21.6 % (9.4-14.8)
[2020-08-12 04:56] LABS: ALANINE AMINOTRANSFERASE 100 U/L (12-78); ALBUMIN 3.1 g/dL (3.4-5.0); ANION GAP 5 mmol/L (5-15); CALCIUM 8.6 mg/dL (8.5-10.1); CHLORIDE 107 mmol/L (98-107); CREATININE 0.68 mg/dL (0.7-1.3)
[2020-08-12 04:58] LABS: ALKALINE PHOSPHATASE 109 U/L (45-117); BILIRUBIN,TOTAL 0.2 mg/dL (0.2-1.0); TOTAL PROTEIN 6.3 g/dL (6.4-8.2)
[2020-08-12] MEDS: OMEPRAZOLE 20 MG CAPSULE.DR PO SCH (05:46)
[2020-08-12 07:26] VITALS: BP 104/67
[2020-08-12] MEDS: OLANZAPINE 5 MG TABLET PO SCH (08:28)
[2020-08-12] MEDS: POTASSIUM CHLORIDE 20 MEQ TAB.ER.PRT PO SCH (08:28)
[2020-08-12] MEDS: BENZONATATE 100 MG CAPSULE PO SCH ×4 (08:28→20:43)
[2020-08-12] MEDS: ENOXAPARIN 40 MG/0.4 ML SQ SCH (12:26)
[2020-08-12 12:57] VITALS: BP 118/87
[2020-08-12] MEDS: ONDANSETRON 16 MG, DEXAMETHASONE 20 MG in SODIUM CHLORIDE 0.9% 50 ML IVPB SCH (13:27)
[2020-08-12] MEDS: CISPLATIN IV SCH (14:58)
[2020-08-12] MEDS: SODIUM CHLORIDE 0.9% IV SCH ×2 (14:58→17:22)
[2020-08-12] MEDS: MESNA IVPB SCH (15:28)
[2020-08-12] MEDS: SODIUM CHLORIDE 0.9% IVPB SCH (15:28)
[2020-08-12] MEDS: ETOPOSIDE 140 MG in SODIUM CHLORIDE 0.9% 500 ML IVPB SCH (16:13)
[2020-08-12] MEDS: IFOSFAMIDE IV SCH (17:22)
[2020-08-12 19:46] VITALS: BP 118/82
[2020-08-12] MEDS: CALCIUM CARBONATE 500 MG TAB.CHEW PO PRN (20:44)
[2020-08-13 01:35] VITALS: BP 121/74
[2020-08-13] MEDS: SODIUM CHLORIDE 0.9% 1,000 ML IV SCH (03:14)
[2020-08-13] MEDS: OMEPRAZOLE 20 MG CAPSULE.DR PO SCH (05:38)
[2020-08-13 06:42] VITALS: BP 112/72
[2020-08-13] MEDS: BENZONATATE 100 MG CAPSULE PO SCH ×2 (09:51→16:02)
[2020-08-13] MEDS: POTASSIUM CHLORIDE 20 MEQ TAB.ER.PRT PO SCH (09:51)
[2020-08-13] MEDS: ENOXAPARIN 40 MG/0.4 ML SQ SCH (12:34)
[2020-08-13 12:42] VITALS: BP 122/81
== END 2020-08-13 16:40 | disposition home or self-care (01) | DRG 842 ==
LOC: 4NW 08:48
PROVIDERS: ADMIT Internal Medicine; ATTEND Internal Medicine
PROC: 02HV33Z Insertion of Infusion Device into Superior Vena Cava, Percutaneous Approach (ICD-10-PCS; principal; 2020-08-08)
PROC: B548ZZA Ultrasonography of Superior Vena Cava, Guidance (ICD-10-PCS; 2020-08-08)
PROC: B5181ZA Fluoroscopy of Superior Vena Cava using Low Osmolar Contrast, Guidance (ICD-10-PCS; 2020-08-08)
DX: C85.20 Mediastinal (thymic) large B-cell lymphoma, unspecified site (principal); E87.6 Hypokalemia; Z51.11 Encounter for antineoplastic chemotherapy; Z79.01 Long term (current) use of anticoagulants; Z86.711 Personal history of pulmonary embolism
CPT/HCPCS: 36415; 36573; 80053; 81001; 81003; 85025; G0378; J1100; J1650; J2405; J9060; J9209; C1751; J0780; J7030; J7040; J9181; J9208

== ENCOUNTER 2020-08-29 08:21 | Inpatient (IN) | payer OTHER, MEDICAID ==
[~2020-08-29] VITALS: Ht 165.1 cm; Wt 83.4 kg
[2020-08-29 09:14] VITALS: BP 107/68
[2020-08-29] MEDS ORDERED: PLEASE ENTER HEIGHT AND WEIGHT MC SCH ×2 (09:30→12:30)
[2020-08-29] MEDS ORDERED: ENOXAPARIN 40 MG/0.4 ML SQ SCH (09:30)
[2020-08-29 09:42] LABS: MEAN CORPUSCULAR HEMOGLOBIN 35.4 pg (27.5-34.5); MEAN CORPUSCULAR HGB CONC 34.9 g/dL (33.2-36.2); MEAN PLATELET VOLUME 6.9 fL (7.4-10.4); PLATELET COUNT 413 x10^3/uL (130-400); RED BLOOD COUNT 2.57 x10^6/uL (4.38-5.82); RED CELL DISTRIBUTION WIDTH 28.3 % (9.4-14.8)
[2020-08-29 09:44] LABS: ALBUMIN 3.4 g/dL (3.4-5.0); ANION GAP 6 mmol/L (5-15); CALCIUM 9.2 mg/dL (8.5-10.1); CHLORIDE 109 mmol/L (98-107)
[2020-08-29 09:48] LABS: ALANINE AMINOTRANSFERASE 36 U/L (12-78); ALKALINE PHOSPHATASE 119 U/L (45-117); BILIRUBIN,TOTAL 0.2 mg/dL (0.2-1.0); CREATININE 0.92 mg/dL (0.7-1.3); TOTAL PROTEIN 6.7 g/dL (6.4-8.2)
[2020-08-29 10:10] LABS: EOS% (MANUAL) 1 % (1-7); SEGS% (MANUAL) 61 % (42-75)
[2020-08-29 10:11] LABS: BAND#(MANUAL) 1.01 x10^3/uL; BANDS%(MANUAL) 10 % (0-7); LYMPH#(MANUAL) 1.11 x10^3/uL (1-3.4); LYMPHS% (MANUAL) 11 % (22-44); METAMYELOCYTES# (MANUAL) 0.61 x10^3/uL (0-0); METAMYELOCYTES% (MANUAL) 6 % (0-1); MONOS#(MANUAL) 0.91 x10^3/uL (0.3-2.7); MONOS% (MANUAL) 9 % (2-9); MYELOCYTES% (MANUAL) 2 % (0-0); POLYCHROMASIA 1+; SEG#(MANUAL) 6.26 x10^3/uL (1.8-6.8)
[2020-08-29 10:12] LABS: <PLATELET ESTIMATE> INCREASED; <PLT MORPHOLOGY> NORMAL PLT MORPH; ANISOCYTOSIS 2+; TEAR DROPS 1+
[2020-08-29] MEDS: OLANZAPINE 5 MG TABLET PO SCH ×2 (10:42→14:10)
[2020-08-29] MEDS ORDERED: PROCHLORPERAZINE 5 MG/ML, 2ML IV PRN (11:00)
[2020-08-29] MEDS ORDERED: SODIUM CHLORIDE 0.9% 1,000 ML IV SCH (11:00)
[2020-08-29] MEDS ORDERED: LORazepam 2 MG/ML, 1ML IV PRN (11:00)
[2020-08-29] MEDS ORDERED: PROC10TA78 PO (11:55)
[2020-08-29] MEDS: OMEPRAZOLE 20 MG CAPSULE.DR PO SCH (12:06)
[2020-08-29] MEDS: POTASSIUM CHLORIDE 20 MEQ TAB.ER.PRT PO SCH (12:06)
[2020-08-29] MEDS: SODIUM CHLORIDE 0.9% 1,000 ML IV SCH ×2 (12:07→20:42)
[2020-08-29] MEDS ORDERED: FOSAPREPITANT 150 MG in SODIUM CHLORIDE 0.9% 145 ML IV ONE (13:30)
[2020-08-29 13:52] VITALS: BP 99/63
[2020-08-29] MEDS: ONDANSETRON 16 MG, DEXAMETHASONE 10 MG in SODIUM CHLORIDE 0.9% 50 ML IVPB SCH (14:09)
[2020-08-29 14:19] LABS: MICROSCOPIC NOT IND
[2020-08-29] MEDS: SODIUM CHLORIDE 0.9% IV SCH ×2 (15:49→18:15)
[2020-08-29] MEDS: CISPLATIN IV SCH (15:49)
[2020-08-29] MEDS: ETOPOSIDE 140 MG in SODIUM CHLORIDE 0.9% 500 ML IVPB SCH (16:49)
[2020-08-29] MEDS ORDERED: MESNA IVPush ONE (17:00)
[2020-08-29] MEDS: IFOSFAMIDE IV SCH (18:15)
[2020-08-29 19:25] VITALS: BP 114/69
[2020-08-29] MEDS: APIXABAN 5 MG TABLET PO SCH (20:38)
[2020-08-29] MEDS: SODIUM CHLORIDE 0.9% IVPB SCH (21:52)
[2020-08-29] MEDS: MESNA IVPB SCH (21:52)
[2020-08-30 04:00] VITALS: BP 103/62
[2020-08-30 04:28] LABS: MICROSCOPIC NOT IND
[2020-08-30] MEDS: SODIUM CHLORIDE 0.9% 1,000 ML IV SCH ×3 (04:43→19:47)
[2020-08-30 05:10] LABS: PLATELET COUNT 483 x10^3/uL (130-400); RED CELL DISTRIBUTION WIDTH 28.2 % (9.4-14.8)
[2020-08-30 05:11] LABS: ALANINE AMINOTRANSFERASE 34 U/L (12-78); ALBUMIN 3.1 g/dL (3.4-5.0); ANION GAP 7 mmol/L (5-15); CALCIUM 8.7 mg/dL (8.5-10.1); CHLORIDE 111 mmol/L (98-107)
[2020-08-30 05:14] LABS: ALKALINE PHOSPHATASE 112 U/L (45-117); BILIRUBIN,TOTAL 0.4 mg/dL (0.2-1.0); CREATININE 0.73 mg/dL (0.7-1.3); TOTAL PROTEIN 6.3 g/dL (6.4-8.2)
[2020-08-30 05:50] LABS: ANISOCYTOSIS 2+; BANDS%(MANUAL) 5 % (0-7); LYMPHS% (MANUAL) 5 % (22-44); METAMYELOCYTES# (MANUAL) 0.16 x10^3/uL (0-0); METAMYELOCYTES% (MANUAL) 1 % (0-1); MONOS#(MANUAL) 0.48 x10^3/uL (0.3-2.7); MONOS% (MANUAL) 3 % (2-9); POLYCHROMASIA 1+; SEG#(MANUAL) 13.67 x10^3/uL (1.8-6.8); SEGS% (MANUAL) 86 % (42-75)
[2020-08-30 05:51] LABS: <PLATELET ESTIMATE> INCREASED; <PLT MORPHOLOGY> NORMAL PLT MORPH; TEAR DROPS 1+
[2020-08-30] MEDS: OMEPRAZOLE 20 MG CAPSULE.DR PO SCH (05:59)
[2020-08-30 07:13] VITALS: BP 104/64
[2020-08-30] MEDS: APIXABAN 5 MG TABLET PO SCH ×2 (09:05→19:45)
[2020-08-30] MEDS: OLANZAPINE 5 MG TABLET PO SCH (09:05)
[2020-08-30] MEDS: POTASSIUM CHLORIDE 20 MEQ TAB.ER.PRT PO SCH (09:05)
[2020-08-30 12:33] VITALS: BP 113/67
[2020-08-30] MEDS: ONDANSETRON 16 MG, DEXAMETHASONE 10 MG in SODIUM CHLORIDE 0.9% 50 ML IVPB SCH (14:12)
[2020-08-30] MEDS: CISPLATIN IV SCH (15:13)
[2020-08-30] MEDS: SODIUM CHLORIDE 0.9% IV SCH ×2 (15:13→17:40)
[2020-08-30] MEDS: ETOPOSIDE 140 MG in SODIUM CHLORIDE 0.9% 500 ML IVPB SCH (16:30)
[2020-08-30] MEDS: IFOSFAMIDE IV SCH (17:40)
[2020-08-30 19:12] VITALS: BP 103/63
[2020-08-30] MEDS: MESNA IVPB SCH (21:30)
[2020-08-30] MEDS: SODIUM CHLORIDE 0.9% IVPB SCH (21:30)
[2020-08-31 03:44] VITALS: BP 118/72
[2020-08-31] MEDS: SODIUM CHLORIDE 0.9% 1,000 ML IV SCH ×3 (03:48→19:36)
[2020-08-31] MEDS: OMEPRAZOLE 20 MG CAPSULE.DR PO SCH (05:17)
[2020-08-31 05:32] LABS: MEAN CORPUSCULAR HEMOGLOBIN 35.5 pg (27.5-34.5); MEAN CORPUSCULAR HGB CONC 34.3 g/dL (33.2-36.2); PLATELET COUNT 483 x10^3/uL (130-400); RED BLOOD COUNT 2.37 x10^6/uL (4.38-5.82); RED CELL DISTRIBUTION WIDTH 27.7 % (9.4-14.8)
[2020-08-31 05:47] LABS: CHLORIDE 113 mmol/L (98-107)
[2020-08-31 05:55] LABS: MICROSCOPIC NOT IND
[2020-08-31 06:10] LABS: MONOS#(MANUAL) 0.92 x10^3/uL (0.3-2.7); MONOS% (MANUAL) 7 % (2-9); SEG#(MANUAL) 12.28 x10^3/uL (1.8-6.8); SEGS% (MANUAL) 93 % (42-75)
[2020-08-31 06:11] LABS: <PLATELET ESTIMATE> INCREASED; ANISOCYTOSIS 2+; MICROCYTOSIS 1+; POLYCHROMASIA 1+
[2020-08-31 06:12] LABS: <PLT MORPHOLOGY> NORMAL PLT MORPH; TEAR DROPS 1+
[2020-08-31 06:19] LABS: ALANINE AMINOTRANSFERASE 25 U/L (12-78); ALBUMIN 2.8 g/dL (3.4-5.0); ALKALINE PHOSPHATASE 93 U/L (45-117); ANION GAP 4 mmol/L (5-15); BILIRUBIN,TOTAL 0.2 mg/dL (0.2-1.0); CALCIUM 8.4 mg/dL (8.5-10.1); CREATININE 0.64 mg/dL (0.7-1.3); TOTAL PROTEIN 5.7 g/dL (6.4-8.2)
[2020-08-31 07:37] VITALS: BP 119/72
[2020-08-31] MEDS: APIXABAN 5 MG TABLET PO SCH ×2 (09:34→19:35)
[2020-08-31] MEDS: OLANZAPINE 5 MG TABLET PO SCH (09:34)
[2020-08-31] MEDS: POTASSIUM CHLORIDE 20 MEQ TAB.ER.PRT PO SCH (09:34)
[2020-08-31] MEDS: ONDANSETRON 16 MG, DEXAMETHASONE 10 MG in SODIUM CHLORIDE 0.9% 50 ML IVPB SCH (12:55)
[2020-08-31 13:00] VITALS: BP 108/62
[2020-08-31] MEDS: SODIUM CHLORIDE 0.9% IV SCH ×2 (14:45→17:45)
[2020-08-31] MEDS: CISPLATIN IV SCH (14:45)
[2020-08-31] MEDS: ETOPOSIDE 140 MG in SODIUM CHLORIDE 0.9% 500 ML IVPB SCH (16:29)
[2020-08-31] MEDS: IFOSFAMIDE IV SCH (17:45)
[2020-08-31 19:23] VITALS: BP 117/75
[2020-08-31] MEDS: SODIUM CHLORIDE 0.9% IVPB SCH (21:48)
[2020-08-31] MEDS: MESNA IVPB SCH (21:48)
[2020-09-01 03:31] VITALS: BP 111/64
[2020-09-01] MEDS: SODIUM CHLORIDE 0.9% 1,000 ML IV SCH ×3 (03:47→19:54)
[2020-09-01] MEDS: OMEPRAZOLE 20 MG CAPSULE.DR PO SCH (05:30)
[2020-09-01 05:52] LABS: BASOPHILS % (AUTO) 0 % (0-1); EOSINOPHILS % (AUTO) 0 % (1-7); LYMPHOCYTES % (AUTO) 12 % (22-44); MEAN CORPUSCULAR HEMOGLOBIN 35.3 pg (27.5-34.5); MEAN CORPUSCULAR HGB CONC 34.7 g/dL (33.2-36.2); MEAN PLATELET VOLUME 6.9 fL (7.4-10.4); MONOCYTES % (AUTO) 10 % (2-9); NEUTROPHILS % (AUTO) 78 % (42-75); PLATELET COUNT 490 x10^3/uL (130-400)
[2020-09-01 05:56] LABS: ALBUMIN 2.7 g/dL (3.4-5.0); ANION GAP 5 mmol/L (5-15); CALCIUM 8.3 mg/dL (8.5-10.1); CHLORIDE 108 mmol/L (98-107)
[2020-09-01 05:59] LABS: ALANINE AMINOTRANSFERASE 23 U/L (12-78); ALKALINE PHOSPHATASE 83 U/L (45-117); BILIRUBIN,TOTAL 0.3 mg/dL (0.2-1.0); CREATININE 0.58 mg/dL (0.7-1.3); TOTAL PROTEIN 5.5 g/dL (6.4-8.2)
[2020-09-01 06:37] LABS: ANISOCYTOSIS 2+; POLYCHROMASIA 1+
[2020-09-01 06:38] LABS: <PLATELET ESTIMATE> INCREASED; <PLT MORPHOLOGY> NORMAL PLT MORPH; TEAR DROPS 1+
[2020-09-01 07:40] VITALS: BP 121/75
[2020-09-01 07:45] LABS: MICROSCOPIC NOT IND
[2020-09-01] MEDS: OLANZAPINE 5 MG TABLET PO SCH (09:53)
[2020-09-01] MEDS: APIXABAN 5 MG TABLET PO SCH ×2 (09:53→19:54)
[2020-09-01] MEDS: POTASSIUM CHLORIDE 20 MEQ TAB.ER.PRT PO SCH (09:54)
[2020-09-01 13:04] VITALS: BP 96/60
[2020-09-01] MEDS: ONDANSETRON 16 MG, DEXAMETHASONE 10 MG in SODIUM CHLORIDE 0.9% 50 ML IVPB SCH (14:16)
[2020-09-01] MEDS: SODIUM CHLORIDE 0.9% IV SCH ×2 (15:18→18:02)
[2020-09-01] MEDS: CISPLATIN IV SCH (15:18)
[2020-09-01] MEDS: ETOPOSIDE 140 MG in SODIUM CHLORIDE 0.9% 500 ML IVPB SCH (16:38)
[2020-09-01] MEDS: IFOSFAMIDE IV SCH (18:02)
[2020-09-01 19:48] VITALS: BP 116/73
[2020-09-01] MEDS: MESNA IVPB SCH (21:10)
[2020-09-01] MEDS: SODIUM CHLORIDE 0.9% IVPB SCH (21:10)
[2020-09-02 01:04] VITALS: BP 98/52
[2020-09-02] MEDS: SODIUM CHLORIDE 0.9% 1,000 ML IV SCH ×3 (03:12→18:52)
[2020-09-02] MEDS: OMEPRAZOLE 20 MG CAPSULE.DR PO SCH (04:43)
[2020-09-02 04:48] LABS: BASOPHILS % (AUTO) 0 % (0-1); EOSINOPHILS % (AUTO) 0 % (1-7); LYMPHOCYTES % (AUTO) 17 % (22-44); MEAN CORPUSCULAR HEMOGLOBIN 35.9 pg (27.5-34.5); MEAN CORPUSCULAR HGB CONC 35.6 g/dL (33.2-36.2); MEAN PLATELET VOLUME 6.7 fL (7.4-10.4); MONOCYTES % (AUTO) 5 % (2-9); NEUTROPHILS % (AUTO) 79 % (42-75); PLATELET COUNT 541 x10^3/uL (130-400); RED BLOOD COUNT 2.55 x10^6/uL (4.38-5.82); RED CELL DISTRIBUTION WIDTH 25.9 % (9.4-14.8)
[2020-09-02 04:58] LABS: ALANINE AMINOTRANSFERASE 25 U/L (12-78); ALBUMIN 3.1 g/dL (3.4-5.0); ANION GAP 5 mmol/L (5-15); CALCIUM 8.8 mg/dL (8.5-10.1); CHLORIDE 107 mmol/L (98-107); CREATININE 0.77 mg/dL (0.7-1.3)
[2020-09-02 05:01] LABS: ALKALINE PHOSPHATASE 84 U/L (45-117); BILIRUBIN,TOTAL 0.3 mg/dL (0.2-1.0); TOTAL PROTEIN 6.1 g/dL (6.4-8.2)
[2020-09-02 05:07] LABS: MICROSCOPIC NOT IND
[2020-09-02] MEDS: OLANZAPINE 5 MG TABLET PO SCH (08:17)
[2020-09-02] MEDS: POTASSIUM CHLORIDE 20 MEQ TAB.ER.PRT PO SCH (08:17)
[2020-09-02] MEDS: APIXABAN 5 MG TABLET PO SCH ×2 (08:17→20:54)
[2020-09-02 08:34] VITALS: BP 128/75
[2020-09-02] MEDS: ONDANSETRON 16 MG, DEXAMETHASONE 10 MG in SODIUM CHLORIDE 0.9% 50 ML IVPB SCH (14:13)
[2020-09-02 15:08] VITALS: BP 88/43
[2020-09-02] MEDS: SODIUM CHLORIDE 0.9% IV SCH ×2 (15:09→17:27)
[2020-09-02] MEDS: CISPLATIN IV SCH (15:09)
[2020-09-02] MEDS: ETOPOSIDE 140 MG in SODIUM CHLORIDE 0.9% 500 ML IVPB SCH (16:16)
[2020-09-02] MEDS: IFOSFAMIDE IV SCH (17:27)
[2020-09-02] MEDS: CALCIUM CARBONATE 500 MG TAB.CHEW PO PRN ×2 (17:56→22:27)
[2020-09-02 20:35] VITALS: BP 114/68
[2020-09-02] MEDS: MESNA IVPB SCH (20:45)
[2020-09-02] MEDS: SODIUM CHLORIDE 0.9% IVPB SCH (20:45)
[2020-09-03 00:40] VITALS: BP 103/56
[2020-09-03] MEDS: SODIUM CHLORIDE 0.9% 1,000 ML IV SCH ×3 (02:41→22:31)
[2020-09-03] MEDS: OMEPRAZOLE 20 MG CAPSULE.DR PO SCH (05:45)
[2020-09-03 06:42] VITALS: BP 94/49
[2020-09-03] MEDS: APIXABAN 5 MG TABLET PO SCH ×2 (09:33→22:20)
[2020-09-03] MEDS: POTASSIUM CHLORIDE 20 MEQ TAB.ER.PRT PO SCH (09:33)
[2020-09-03 13:01] VITALS: BP 108/62
[2020-09-03 20:00] VITALS: BP 110/70
== END 2020-09-03 22:22 | disposition home or self-care (01) | DRG 847 ==
LOC: 4NW 08:21
PROVIDERS: ADMIT Internal Medicine; ATTEND Internal Medicine
PROC: 02HV33Z Insertion of Infusion Device into Superior Vena Cava, Percutaneous Approach (ICD-10-PCS; principal; 2020-08-29)
PROC: B5181ZA Fluoroscopy of Superior Vena Cava using Low Osmolar Contrast, Guidance (ICD-10-PCS; 2020-08-29)
PROC: B548ZZA Ultrasonography of Superior Vena Cava, Guidance (ICD-10-PCS; 2020-08-29)
DX: Z51.11 Encounter for antineoplastic chemotherapy (principal); C38.3 Malignant neoplasm of mediastinum, part unspecified; D53.9 Nutritional anemia, unspecified; D72.829 Elevated white blood cell count, unspecified; D75.89 Other specified diseases of blood and blood-forming organs; Z79.01 Long term (current) use of anticoagulants; Z86.711 Personal history of pulmonary embolism
CPT/HCPCS: 36415; 36573; 80053; 81003; 82607; 85025; G0378; J1100; J1453; J1650; J2405; J9060; J9209; C1751; J7030; J7040; J9181; J9208

== ENCOUNTER 2020-09-22 19:11 | Emergency (ER) | payer OTHER, MEDICAID ==
[~2020-09-22] VITALS: Ht 165.1 cm; Wt 82.1 kg
[~2020-09-22 19:11] MED LIST changes: -GADOTERATE 10 MMOL/20ML SYR ONE
[2020-09-22 19:15] VITALS: BP 143/86
--- NOTE | 2020-09-22 19:23 | NUR ---
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
--- NOTE | 2020-09-22 20:20 | NUR ---
PT LAYING IN BED, A/OX4, FATHER AT BEDSIDE, ALL NEEDS IN REACH, CALL LIGHT IN REACH, NAD AT THIS TIME
--- NOTE | 2020-09-22 20:22 | NUR ---
PROVIDER AT BEDSIDE TO DISCUSS POC
[2020-09-22] MEDS ORDERED: OXYcodone/APAP 5/325MG TABLET ONE (20:36)
[2020-09-22] MEDS ORDERED: OXYcodone 5 MG/5 ML ORAL.SOL UDC ONE (20:39)
[2020-09-22] MEDS ORDERED: OXYcodone 5 MG/5 ML ORAL.SOL UDC PO ONE (21:00)
--- NOTE | 2020-09-22 21:26 | NUR ---
PT LAYING IN BED, A/OX4, ALL NEEDS IN REACH, CALL LIGHT IN REACH, NAD AT THIS TIME, FATHER AT BEDSIDE
== END 2020-09-22 21:43 | disposition home or self-care (01) ==
LOC: ED 21:39
DX: M25.512 Pain in left shoulder (principal)
CPT/HCPCS: 71046; 99284

== ENCOUNTER → 2020-09-22 | Outpatient (CLI) | payer OTHER, MEDICAID ==
[~2020-09-22] MED LIST changes: +GADOTERATE 10 MMOL/20ML SYR ONE; +PROC10TA78 PO
== END | disposition home or self-care (01) ==
LOC: RAD 14:43
PROVIDERS: ATTEND Radiology Radiation Oncology
DX: C79.31 Secondary malignant neoplasm of brain (principal); C38.1 Malignant neoplasm of anterior mediastinum
CPT/HCPCS: 70553; A9575

== ENCOUNTER → 2020-10-03 | Outpatient (CLI) | payer OTHER, MEDICAID | END | disposition home or self-care (01) | LOC: ROC 07:47 | PROVIDERS: ATTEND Radiology Radiation Oncology | DX: Z08 Encounter for follow-up examination after completed treatment for malignant neoplasm (principal); Z85.841 Personal history of malignant neoplasm of brain; Z85.29 Personal history of malignant neoplasm of other respiratory and intrathoracic organs; K21.9 Gastro-esophageal reflux disease without esophagitis; E87.6 Hypokalemia; R11.2 Nausea with vomiting, unspecified; Z79.01 Long term (current) use of anticoagulants; Z79.899 Other long term (current) drug therapy | CPT/HCPCS: 99213; G0463 ==

== ENCOUNTER → 2020-11-30 | Outpatient (CLI) | payer OTHER, MEDICAID | END | disposition home or self-care (01) | LOC: CFH 12:56 | PROVIDERS: ATTEND Radiology Radiation Oncology | DX: C79.31 Secondary malignant neoplasm of brain (principal) | CPT/HCPCS: 70553; A9575 ==